=== PATIENT | female | born 1955 | race Caucasian/White ===

== ENCOUNTER 2016-12-17 13:14 | Emergency (ER) | payer OTHER ==
[~2016-12-17] VITALS: Ht 149.9 cm; Wt 80.7 kg
--- NOTE | ~2016-12-17 | EKG ---
[address] [place] [address] ELECTROCARDIOGRAM REPORT Name: LEANDER SOLARES [facility] [id number] Admission: 12/17/16 Attend Phys: Discharge: 12/17/16 Date of : 51 Report #: [id number] THIS REPORT FOR: //name// [facility] ED Test Date: 2016-12-17 Test Time: 14:36:39 Pat Name: LEANDER SOLARES Department: Room: Gender: F Cryogenics Repairer: MZOOK : 1955 Requested By: Amarjit Minor Order Number: [id number] MD: Usama Townsend Measurements Intervals [place] Rate: 69 P: 58 [place]: 161 QRS: 17 QRSD: 80 T: 59 QT: 384 QTc: 412 Interpretive Statements Sinus rhythm Borderline T abnormalities, anterior leads Compared to ECG 05/04/2016 13:34:51 No significant changes Electronically Signed On 12-18-2016 7:38:41 CDT by Usama Townsend [email or web address] <ELECTRONICALLY SIGNED> By: Usama Townsend MD, [facility] 12/18/16 0738 1436 35 Usama Townsend MD, FACC /EPI
[~2016-12-17 13:14] MED LIST: ACETAMINOPHEN325 M1 PO; ACETAMINOPHEN650 M5 PO; ADULT LOW DOSE81 MG PO; ADVAIR 100-501 EACH INH; ADVAIR 250-501 EACH IH; ADVAIR HFA 1112 UNIT INH; ADVAIRDISKUS IH; ALLERGY10 MG PO; AMARYL4 MG PO; AMBEREN; AMLODIPINE BESYL5 MG PO; ANTIVERT25 MG PO; ARTHRI-FLEX TA1 EACH; ASPIRIN325 PO; ATIVAN1 MG PO; ATORVASTATIN CA20 MG PO; BAYER CHEWABLE81 MG PO; BIOTIN PLUS KE1 EACH PO; BUTALB-APAP-CA1 EACH PO; BUTALBITAL COM1 EAC1 PO; BUTALBITAL-APA1 EAC1 OR; CARVEDILOL12.5 MG PO; CARVEDILOL25 MG PO; CLARITIN10 MG PO; COLACE100 MG PO; COREG CR20 MG PO; COREG PO; COREG25 MG PO; COZAAR 25 MG TA25 M1 PO; COZAAR 25 MG TA25 M2 PO; COZAAR 50 MG TA50 M1 PO; COZAAR 50 MG TA50 MG PO; CRANBERRY 4001 EACH PO; CRESTOR5 MG PO; CYCLOBENZAPRINE PO; DEEP SEA NASAL44 ML; DEPAKOTE ER500 MG PO; DITROPAN XL5 M1 PO; DOXYCYCLINE 10100 M1 PO; DOXYCYCLINE 10100 M2 PO; EFFEXOR XR150 MG PO; EFFEXOR XR75 MG PO; FIBER CHOICE1 EACH PO; FIBER TABS625 MG PO; FIBER0.52 G1 PO; FUROSEMIDE 20 M20 MG PO; GABAPENTIN100 MG PO; GLUCOPHAGE1000 MG PO; GLUCOPHAGE500 MG PO; GLUCOSAMINE &1 EACH PO; GLUMETZA1000; HIBICLENS120 ML; HYDROCODON-ACE1 EAC7 PO; HYDROCODONE-AP1 EAC6 PO; IBUPROFEN 200200 M1 PO; IMITREX 50 MG T50 MG PO; JANUMET 50-1,01 EACH; JANUMET 50-1,01 EACH PO; KLOR-CON M2020 MEQ PO; LASIX 20 MG TAB20 MG PO; LEXAPRO 10 MG T10 M1 PO; LIDODERM 5%1 PATC1 TRANSDERM; LIDODERM 5%1 PATCH; LIDODERM 5%1 PATCH TRANSDERM; LISINOPRIL10 MG PO; LISINOPRIL20 MG PO; LOVASTATIN 20 M20 MG PO; MACROBID 100 M100 M1 PO; MEDROL4 MG; MEDROLDOSEPACK PO; METFORMIN HCL500 MG PO; MICONAZOLE NITR45 G1; MINOCIN100 MG PO; MIRALAX17 GM PO; MIRALAX255 GM PO; MUCINEX D TABL1 EACH PO; MULTIVITAMINS PO; MULTIVITAMINS1 EAC7 PO; NAPROSYN500 MG PO; NEURONTIN 300300 M1 PO; NITROGLYCERIN0.4 MG SUBLING; NITROQUICK0.4 MG SUBLING; NORCO 5-325 TA1 EACH PO; NORFLEX100 MG PO; NORVASC 2.5 MG2.5 M1 PO; NOVOLOG100 UNIT/1 SUBQ; OXYBUTYNIN 5 MG5 M2 PO; PANTOPRAZOLE SO40 M1 PO; PERCOCET 5-3251 EACH PO; PHENERGAN 25 MG25 M1 PO; PHENERGAN50 MG RC; PLAVIX 75 MG TA75 MG PO; PRAVACHOL 20 MG20 M1 PO; PRAVASTATIN SOD20 MG PO; PROAIR HFA8.5 GM INH; PROCARDIA10 MG PO; PROMETHAZINE HC25 M2 PO; PROTONIX40 M1 PO; RANEXA 500 MG500 M1 PO; RANEXA1000 MG PO; RANITIDINE 150150 M1 PO; REQUIP 1 MG TABL1 M1 PO; RESTORIL15 MG PO; RESTORIL30 MG PO; SANCTURA XR60 M1 PO; SINGULAIR 10 MG10 M1 PO; SORE THROAT SP177 M1; SYMBICORT160 MCG/4. INH; TEMAZEPAM15 MG PO; TIZANIDINE HCL2 M1 PO; TOPAMAX 25 MG T25 M1 PO; TOPAMAX50 MG PO; TRAMADOL 50 MG50 MG PO; TRANSDERM-SCO1 PATC1 TD; TYLENOL325 MG PO; ULTRAM 50MG TAB50 MG PO; VENLAFAXIN75 MG/1 T2 PO; VENLAFAXINE HC100 MG PO; VENLAFAXINE HCL PO; XANAX 0.25 MG0.25 MG PO; ZANAFLEX2 M2 PO; ZANAFLEX4 MG PO; ZANTAC 150MG T150 MG PO; ZEGERID 20 MG1 EACH PO; ZEGERID 40 MG1 EACH PO; [UNRECOGNIZED DRUG - OTHER]
[2016-12-17 14:46] LABS: URINE BILIRUBIN NEGATIVE (Negative); URINE BLOOD NEGATIVE (Negative); URINE COLOR YELLOW; URINE GLUCOSE-RANDOM* NEGATIVE (Negative); URINE KETONES NEGATIVE (Negative); URINE LEUKOCYTES-REFLEX TRACE (Negative); URINE PROTEIN (DIPSTICK) NEGATIVE (Negative); URINE UROBILINOGEN 0.2 E.U./dl (0.2-1.0)
[2016-12-17 17:22] LABS: ABSOLUTE NEUTROPHILS 5.1 thou/uL (1.4-8.2); BASOPHILS 0.3 % (0.0-2.0); EOSINOPHILS 0.9 % (0.0-3.0); HEMOGLOBIN 11.5 gm/dL (12.0-15.0); LYMPHOCYTES 22.8 % (24.0-44.0); MANUAL DIFF NO; MCH 28.1 pg (26.0-34.0); MCV 85.1 fL (80.0-100.0); MONOCYTES 10.1 % (1.0-8.0); PLATELET COUNT 297 thou/uL (150-400); POLYS 65.9 % (36.0-66.0); RBC 4.11 mil/uL (4.20-5.00); RDW 15.9 % (10.5-14.5); WBC 7.7 thou/uL (4.0-11.0)
[2016-12-17 17:34] LABS: CALCIUM 8.5 mg/dL (8.5-10.1); CREATININE 0.9 mg/dL (0.6-1.0); POTASSIUM 4.3 mmol/L (3.5-5.1)
[2016-12-17 17:36] LABS: ALBUMIN 3.4 g/dL (3.4-5.0); TOTAL BILIRUBIN 0.3 mg/dL (<0.1-1.0); TOTAL PROTEIN 6.4 g/dL (6.4-8.2)
[2016-12-17] MEDS ORDERED: SENOKOT-S1 TA1 PO (19:54)
== END 2016-12-17 20:17 | disposition home or self-care (01) ==
LOC: ER 13:14
PROVIDERS: Emergency Medicine
DX: M54.6 Pain in thoracic spine (principal); I10 Essential (primary) hypertension; E11.9 Type 2 diabetes mellitus without complications; E78.00 Pure hypercholesterolemia, unspecified; Z90.710 Acquired absence of both cervix and uterus; Z88.1 Allergy status to other antibiotic agents; Z88.0 Allergy status to penicillin; Z88.6 Allergy status to analgesic agent; Z88.8 Allergy status to other drugs, medicaments and biological substances; Z87.891 Personal history of nicotine dependence

== ENCOUNTER 2016-12-30 11:16 | Inpatient (IN) | payer OTHER ==
[2016-12-30] VITALS (30 sets, daily range): BP systolic 86–140; BP diastolic 45–86
[~2016-12-30] VITALS: Ht 149.9 cm; Wt 97.4 kg
--- NOTE | ~2016-12-30 | HC ---
[facility] [place] [address] CONSULTATION Name: LEANDER SOLARES Room #: 454-P [facility] IN M.R.#: [id number] Admission: 12/30/16 Attend Phys: Jenny Briseno MD Discharge: 01/04/17 Date of : 51 Report #: [id number] THIS REPORT FOR: //name// CC: Osiris Briseno HISTORY OF PRESENT ILLNESS: The patient is a 61-year-old white female who was admitted with headache and right leg weakness. She was diagnosed with an acute ischemic stroke with right-sided weakness. She underwent TPA. Neurology has been involved. She was cared for in the intensive care unit. CT of the head was negative. An MRI of the brain did not show any ischemic changes per se. Carotid showed mild plaquing. She has undergone echocardiogram as well. She notes the right-sided weakness is present, improved somewhat. She was able to do some limited therapy yesterday with sitting on the edge of the bed. We are seeing her in rehabilitation medicine consultation. PAST MEDICAL HISTORY: Includes hypertension, diabetes mellitus, elevated cholesterol, she has had 4 cardiac stents, she has a history of vertigo issues and utilized a walker for this to help with this premorbidly. History of left knee degenerative arthritis. She follows with Dr. Greer in Orthopedics. She just saw him in the office recently and the plan is to undergo three injections to see if that will help prior to considering a total knee replacement. MEDICATIONS: Please see the full medication listing. ALLERGIES: She has multiple allergies as I listed. SOCIAL HISTORY: She lives in an apartment alone. No steps. Premorbid walker ambulator. She does have children that live out of town and notes that she has a jainism family that is closely involved as well as involved neighbors. REVIEW OF SYSTEMS: Did not offer any current complaints of chest pain, shortness of breath or abdominal discomfort. Her main complaint is some right shoulder pain that she noted that started approximately a day ago. It hurts with certain positions. She also has the left knee pain, which is chronic. No complaints involving her left shoulder or the right lower extremity other than the weakness with which she presented. Denied any focal numbness or tingling at the current time. She notes that the vertigo has been an issue with decreased balance. Did not offer any current complaints of headache. PHYSICAL EXAMINATION: GENERAL: A 61-year-old overweight white female in no obvious distress. VITAL SIGNS: Last recorded temperature 97.7, pulse 62, respirations 18, blood pressure 106/80. NEUROLOGIC: The patient is alert. She is oriented. HEENT: Appeared to be benign. Facies are symmetric. EXTREMITIES: She has functional range of motion of the left upper extremity [address] [address] CONSULTATION Name: LEANDER SOLARES Room #: 454-P [facility] IN M.R.#: [id number] Admission: 12/30/16 Attend Phys: Jenny Briseno MD Discharge: 01/04/17 Date of : 51 Report #: [id number] without focal weakness. Right shoulder, she has the ice pack in place. She does have some discomfort to palpation over the subdeltoid bursa and anteriorly over the biceps tendon. She has reasonable range of motion of that right shoulder with gentle passive and active assisted testing, although she does have a mildly positive impingement sign. Functional range of motion and good strength of the left upper extremity. Right lower extremity strength is probably a grade 4-/5. Left lower extremity strength is probably a 4/5. She has an ice pack of that left knee. Sensation appeared to be reasonably intact to simultaneous stimulation and proprioception of the large toe on the right, negative clonus. Functionally, she was min assist with sit to supine. She does have a fear falling. ASSESSMENT: A 61-year-old white female with the following problem list: 1. Acute ischemic stroke with right-sided weakness status post TPA. 2. Significant functional mobility and ADL deficits. 3. Premorbid history of vertigo/walker ambulation. 4. Right shoulder pain. Likely impingement syndrome with symptoms only in the last 24 hours. We will check her shoulder x-ray as discussed with the patient. 5. History of chronic left knee degenerative arthritis. 6. Diabetes mellitus. 7. Hypertension. 8. Exogenous obesity. 9. Elevated cholesterol. 10. History of prior cardiac stents. PLAN: Therapy evaluations are continuing. She is motivated to improve her overall functional independence to get back to her home setting when she further improves. She certainly may be a candidate for a short acute in-hospital inpatient rehabilitation stay to improve her functional independence, so she can return back to the home setting. We will be glad to follow along with you. <ELECTRONICALLY SIGNED> By: Tristian Blue MD 01/08/17 1523 0836 0154 Tristian Blue MD /nt
--- NOTE | ~2016-12-30 | HC ---
[facility] [address] [address] CONSULTATION Name: LEANDER SOLARES Room #: 454-P [facility] IN M.R.#: [id number] Admission: 12/30/16 Attend Phys: Jenny Briseno MD Discharge: Date of : 53 Report #: [id number] THIS REPORT FOR: //name// CC: Osiris Briseno REASON FOR CONSULTATION: Chest pain. HISTORY OF PRESENT ILLNESS: The patient is a 61-year-old woman with a history of diffuse vascular disease with prior coronary stenting. She has a chronic left upper chest pain syndrome related to musculoskeletal discomfort. Yesterday morning, she awakened about 9:30 and got up to use the bathroom. She developed the sudden onset of a headache followed by right arm and leg weakness. She also had a "funny looking smile when she looked in the mirror." She presented to the emergency department and was diagnosed with stroke and received thrombolytic therapy. Her neurologic symptoms have resolved. She has had no change in her left upper chest pain, which continues to be positional and exacerbated by palpation of the chest wall. She denies chest heaviness, pressure or ischemic type symptoms. No history of palpitations, near syncope, or syncope. MEDICATIONS: Include metformin 1000 mg twice daily, albuterol, carvedilol 12.5 mg twice daily, Protonix 40 mg daily, Ranexa 1000 mg twice daily, Topamax 100 mg twice daily, MiraLax, and torsemide 40 mg daily. ALLERGIES: To SULFA, ADHESIVE TAPE, DOXYCYCLINE, ERYTHROMYCIN, PENICILLINS, and LEVAQUIN. PAST MEDICAL HISTORY: Medical records have been reviewed and include a history of small-bowel intussusception with repair, hypertension, diabetes, coronary artery disease, inner thigh abscess with I and D, hysterectomy, and vein surgery. 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 FAMILY HISTORY: Notable for coronary artery disease. REVIEW OF SYSTEMS: All systems negative except as that noted above. PHYSICAL EXAMINATION: GENERAL: A pleasant woman who is alert and in no distress. VITAL SIGNS: Blood pressure is 105/54, heart rate is 69 and regular, she is afebrile, 4 feet 11 inches tall, 214 pounds. HEENT: There are neither xanthelasma, subcutaneous xanthomata, oral mucosal or digital cyanosis or kyphoscoliosis present. CHEST: Clear to auscultation and percussion. CARDIAC: Regular rate and rhythm with normal S1, S2. No murmurs or rubs. [address] [address] CONSULTATION Name: LEANDER SOLARES Room #: [address] [place] [address] IN M.R.#: [id number] Admission: 12/30/16 Attend Phys: Jenny Briseno MD Discharge: Date of : 53 Report #: [id number] ABDOMEN: Soft and nontender. EXTREMITIES: Without cyanosis, clubbing, or edema. Radial pulses are 2+. NEUROLOGIC: She is alert with a nonfocal exam. LABORATORY DATA: Sodium is 140, potassium 3.6, creatinine 1.1, troponin of 0, LDL of 109. White count 4.7, hemoglobin 9.6, platelet count 246. Head CT is normal. Carotid duplex demonstrates mild plaquing. Chest x-ray demonstrates mild basilar atelectasis. EKG, sinus rhythm. IMPRESSION: 1. Acute ischemic stroke with resolution of neurologic deficits following TPA. 2. Diabetes. 3. Chronic chest wall pain. 4. Coronary artery disease, clinically stable. 5. Hypertension. 6. Diastolic heart failure. RECOMMENDATIONS: 1. Resume carvedilol, usual cardiovascular medicines. 2. Echocardiogram with Doppler. 3. Neurologic evaluation. 4. Continued efforts towards aggressive risk factor modification. Thank you for asking me to participate in the patient's care. <ELECTRONICALLY SIGNED> By: Usama Townsend MD, [facility] 01/01/17 1450 0718 1053 Usama Townsend MD, FACC /nt
--- NOTE | ~2016-12-30 | EKG ---
[address] [place] [address] ELECTROCARDIOGRAM REPORT Name: LEANDER SOLARES Room #: 236-P ADM IN M.R.#: [id number] Admission: 12/30/16 Attend Phys: Jenny Briseno MD Discharge: Date of : 51 Report #: [id number] THIS REPORT FOR: //name// [facility] ED Test Date: 2016-12-30 Test Time: 11:25:04 Pat Name: LEANDER SOLARES Department: Room: 236 Gender: F Radio Communications Mechanician: YOLIE : 1955 Requested By: Gerber Garcia Order Number: [id number] MD: Usama Townsend Measurements Intervals [place] Rate: 68 P: 64 [place]: 188 QRS: 9 QRSD: 97 T: 41 QT: 426 QTc: 454 Interpretive Statements Sinus rhythm Poor R-wave progression Compared to ECG 12/17/2016 14:36:39 No significant change Electronically Signed On 12-31-2016 9:20:24 CDT by Usama Townsend [email or web address] <ELECTRONICALLY SIGNED> By: Usama Townsend MD, [facility] 12/31/16 0920 1125 112 Usama Townsend MD, FAC /EPI
--- NOTE | ~2016-12-30 | 2DMMODE ---
[facility] [email or web address] [address] 2 D/M-MODE ECHOCARDIOGRAM Name: LEANDER SOLARES Room #: 454-P [facility] IN .R.#: [id number] Admission: 12/30/16 Attend Phys: Jenny Briseno MD Discharge: Date of : 51 Date of Service: 12/31/16 1307 Report #: [id number] THIS REPORT FOR: //name// APPROVED REPORT Study performed: 12/31/2016 08:40:47 EXAM: Comprehensive 2D, Doppler, and color-flow Echocardiogram Patient Location: Bedside Room #: 236 Blood Pressure: 115/62 mmHg HR: 63 bpm Other Information Study Quality: Adequate Indications CVA/TIA Diabetes CAD Chest Pain Hypertension/HDD Echo Enhancing Agent Indication: Rule out Shunt Agent/Amount Used: Agitated Saline cc 2D Dimensions LVEF(%): 45.86 (>50%) IVSd: 11.75 (7-11mm) LVOT Diam: 18.00 (18-24mm) LVDd: 43.40 mm PWd: 11.18 (7-11mm) Ascending Ao: 30.39 (22-36mm) LVDs: 33.56 (25-40mm) Aortic Root: 27.95 mm Locke's LVEF: 45.86 % Volumes Left Atrial Volume (Systole) Single Plane 4CH: 49.04 mL Single Plane 2CH: 37.39 mL LA ESV Index: 23.00 mL/m2 Aortic Valve [facility] [email or web address] [address] 2 D/M-MODE ECHOCARDIOGRAM Name: LEANDER SOLARES Room #: 454-P [facility] IN ..#: [id number] Admission: 12/30/16 Attend Phys: Jenny Briseno MD Discharge: Date of : 51 Date of Service: 12/31/16 1307 Report #: [id number] AoV Peak Carlos.: 1.72 m/s AO Peak Gr.: 12.29 mmHg LVOT Max P.66 mmHg LVOT Max V: 0.96 m/s Mitral Valve E/A Ratio: 0.8 MV Decel. Time: 237.34 ms MV E Max Carlos.: 0.83 m/s MV A Carlos.: 1.05 m/s MV PHT: 68.83 ms Pulmonary Valve PV Peak Carlos.: 1.21 m/s PV Peak Gr.: 5.86 mmHg Pulmonary Vein P Vein S: 48.9 m/s P Vein D: 46.9 m/s P Vein A Dur.: 26.7 m/s Tricuspid Valve TR Peak Carlos.: 2.34 m/s RAP Estimate: 5.00 mmHg TR Peak Gr.: 21.93 mmHg PA Pressure: 27.00 mmHg Left Ventricle The left ventricle is normal size. There is normal LV segmental wall motion. Borderline concentric left ventricular hypertrophy. Left ventricular systolic function is normal. The left ventricular ejection fraction is within the normal range. LVEF is 60-65%. Grade I - abnormal relaxation pattern. Right Ventricle The right ventricle is normal size. The right ventricular systolic function is normal. Atria The left atrium size is normal. The right atrium size is normal. Aortic Valve The aortic valve is normal in structure. No aortic regurgitation is present. There is no aortic valvular stenosis. Mitral Valve The mitral valve is normal in structure. There is no mitral valve regurgitation noted. No evidence of mitral valve stenosis. [facility] [address] [place] [address] 2 D/M-MODE ECHOCARDIOGRAM Name: LEANDER SOLARES Room #: 454-P ADM IN M.R.#: [id number] Admission: 12/30/16 Attend Phys: Jenny Briseno MD Discharge: Date of : 51 Date of Service: 12/31/16 1307 Report #: [id number] Tricuspid Valve The tricuspid valve is normal in structure. Trace tricuspid regurgitation. Pulmonic Valve The pulmonary valve is normal in structure. Trace pulmonic regurgitation. Great Vessels The aortic root is normal in size. IVC is normal in size and collapses with >50% inspiration Pericardium There is no pericardial effusion. <Conclusion> Left ventricular systolic function is normal. There is normal LV segmental wall motion. LVEF 60-65%. Grade I - abnormal relaxation pattern. No shunting by contrast bubble injection The aortic valve is normal in structure. No aortic regurgitation or stenosis. The mitral valve is normal in structure. There is no mitral valve regurgitation. Pulmonary artery pressure of 30mmHg. There is no pericardial effusion. <ELECTRONICALLY SIGNED> By: Usama Townsend MD, [facility] 12/31/16 1307 1307 1307 Usama Townsend MD, FACC /INF
[~2016-12-30 11:16] MED LIST changes: +SENOKOT-S1 TA1 PO
[2016-12-30 11:41] LABS: POC CA IONIZED 4.6 mg/dL (4.5-5.3); POC CREATININE 1.1 mg/dL (0.6-1.3); POC HEMOGLOBIN 11.2 g/dL (12.0-15.0)
[2016-12-30 11:43] LABS: ABSOLUTE NEUTROPHILS 3.7 thou/uL (1.4-8.2); BASOPHILS 0.4 % (0.0-2.0); EOSINOPHILS 2.1 % (0.0-3.0); HEMATOCRIT 31.8 % (37.0-47.0); HEMOGLOBIN 10.6 gm/dL (12.0-15.0); LYMPHOCYTES 22.2 % (24.0-44.0); MCH 28.3 pg (26.0-34.0); MCHC 33.3 g/dL (28.0-37.0); MCV 85.1 fL (80.0-100.0); MONOCYTES 10.5 % (1.0-8.0); PLATELET COUNT 268 thou/uL (150-400); POLYS 64.8 % (36.0-66.0); RBC 3.74 mil/uL (4.20-5.00); RDW 15.9 % (10.5-14.5); WBC 5.7 thou/uL (4.0-11.0)
[2016-12-30 11:44] LABS: MANUAL DIFF NO
[2016-12-30 11:51] LABS: ANION GAP 7 mmol/L (7-16); BUN 25 mg/dL (7-18); CALCIUM 8.6 mg/dL (8.5-10.1); CHLORIDE 100 mmol/L (98-107); CO2 28 mmol/L (21-32); CREATININE 1.2 mg/dL (0.6-1.0); GLUCOSE 157 mg/dL (74-106); POTASSIUM 4.1 mmol/L (3.5-5.1); SODIUM 135 mmol/L (136-145)
[2016-12-30 12:00] LABS: NT-PRO BRAIN NAT PEPTIDE 284 pg/mL (<300); TROPONIN-I < 0.04 ng/mL (<0.04-0.07)
[2016-12-30] MEDS ORDERED: DEMADEX20 MG PO (12:38)
[2016-12-31] VITALS (15 sets, daily range): BP systolic 86–117; BP diastolic 45–92
[2016-12-31 04:18] LABS: HEMATOCRIT 28.3 % (37.0-47.0); HEMOGLOBIN 9.6 gm/dL (12.0-15.0); MCH 28.6 pg (26.0-34.0); MCHC 33.7 g/dL (28.0-37.0); MCV 84.7 fL (80.0-100.0); PLATELET COUNT 246 thou/uL (150-400); RBC 3.34 mil/uL (4.20-5.00); RDW 15.9 % (10.5-14.5); WBC 4.7 thou/uL (4.0-11.0)
[2016-12-31 04:19] LABS: MANUAL DIFF YES
[2016-12-31 04:43] LABS: ALBUMIN 3.1 g/dL (3.4-5.0); ALKALINE PHOSPHATASE 67 U/L (46-116); ANION GAP 9 mmol/L (7-16); BUN 17 mg/dL (7-18); CALCIUM 8.6 mg/dL (8.5-10.1); CHLORIDE 107 mmol/L (98-107); CHOLESTEROL 200 mg/dL (<200); CO2 24 mmol/L (21-32); CREATININE 1.1 mg/dL (0.6-1.0); GLUCOSE 128 mg/dL (74-106); HDL CHOLESTEROL 50 mg/dL (>40); LDL CHOLESTEROL 109 mg/dL (<100); NT-PRO BRAIN NAT PEPTIDE 442 pg/mL (<300); POTASSIUM 3.6 mmol/L (3.5-5.1); SGOT 19 U/L (15-37); SGPT 23 U/L (30-65); SODIUM 140 mmol/L (136-145); TOTAL BILIRUBIN 0.2 mg/dL (<0.1-1.0); TOTAL PROTEIN 5.7 g/dL (6.4-8.2); TRIGLYCERIDE 209 mg/dL (<150); TROPONIN-I < 0.04 ng/mL (<0.04-0.07); VLDL 42 mg/dL (<40)
[2016-12-31 08:49] LABS: ABSOLUTE NEUTROPHILS 2.2 thou/uL (1.4-8.2); ATYPICAL LYMPHS 1 %; TOTAL CELL COUNT 100
[2016-12-31 08:50] LABS: ANISOCYTOSIS 1+
[2016-12-31 17:08] LABS: CREATININE (ALB/CR) 33.2 mg/dL (Not Estab.); MICROALB:CREAT < 36.1 (0.0-30.0); MICROALBUMIN-RND URINE < 12.0 ug/mL (Not Estab.)
[2016-12-31 21:12] LABS: GLYCOHEMOGLOBIN (HGB A1C) 6.6 % (4.8-5.6)
[2017-01-01 03:28] VITALS: BP 92/45
[2017-01-01 07:54] VITALS: BP 106/80
[2017-01-01] MEDS ORDERED: TEMAZEPAM15 MG PO (11:15)
[2017-01-01] MEDS ORDERED: HYDROCODONE-AP1 EAC6 PO (11:15)
[2017-01-01] MEDS ORDERED: ADULT LOW DOSE81 MG PO (11:15)
[2017-01-01 12:00] VITALS: BP 142/58
[2017-01-01 15:41] VITALS: BP 129/60
[2017-01-01 19:23] VITALS: BP 114/55
[2017-01-02 02:40] VITALS: BP 103/52
[2017-01-02 07:04] VITALS: BP 103/52
[2017-01-02 07:25] VITALS: BP 113/64
[2017-01-02 11:14] VITALS: BP 121/72
[2017-01-02 15:16] VITALS: BP 137/74
[2017-01-02 19:26] VITALS: BP 133/61
[2017-01-03 03:47] VITALS: BP 121/53
[2017-01-03 07:22] VITALS: BP 109/51
[2017-01-03 11:45] VITALS: BP 121/47
[2017-01-03 16:13] VITALS: BP 136/75
[2017-01-03 19:54] VITALS: BP 129/61
[2017-01-04 04:15] VITALS: BP 115/51
[2017-01-04 07:47] VITALS: BP 116/64
== END 2017-01-04 11:59 | DRG 69 ==
LOC: ER 11:16 → 4W 13:29 → ICU 13:29 → EROBS 13:29 → ICU 14:32 → 4W 12-31 11:35
PROVIDERS: Emergency Medicine; Internal Medicine Endocrinology, Diabetes & Metabolism
DX: G45.9 Transient cerebral ischemic attack, unspecified (principal); I50.32 Chronic diastolic (congestive) heart failure; Z68.41 Body mass index [BMI] 40.0-44.9, adult; E44.1 Mild protein-calorie malnutrition; E11.9 Type 2 diabetes mellitus without complications; E78.00 Pure hypercholesterolemia, unspecified; I25.10 Atherosclerotic heart disease of native coronary artery without angina pectoris; I11.0 Hypertensive heart disease with heart failure; E66.09 Other obesity due to excess calories; G89.29 Other chronic pain; E78.5 Hyperlipidemia, unspecified; Z90.710 Acquired absence of both cervix and uterus; Z86.14 Personal history of Methicillin resistant Staphylococcus aureus infection; Z95.5 Presence of coronary angioplasty implant and graft; Z88.1 Allergy status to other antibiotic agents; Z82.49 Family history of ischemic heart disease and other diseases of the circulatory system; Z88.0 Allergy status to penicillin; Z88.8 Allergy status to other drugs, medicaments and biological substances; Z83.3 Family history of diabetes mellitus; Z87.891 Personal history of nicotine dependence; Z88.2 Allergy status to sulfonamides
CPT/HCPCS: 10045; 10078

== ENCOUNTER 2018-08-24 18:35 | Inpatient (IN) | payer OTHER ==
[~2018-08-24] VITALS: Ht 149.9 cm; Wt 92.1 kg
--- NOTE | ~2018-08-24 | EKG ---
[address] [place] [address] ELECTROCARDIOGRAM REPORT Name: LEANDER SOLARES Room #: 202-P ADM IN M.R.#: [id number] Admission: 08/24/18 Attend Phys: Jamil Samayoa MD Discharge: Date of : 51 Report #: [id number] THIS REPORT FOR: //name// 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: JOSE : 1955 Requested By: Elaine Hope Order Number: [id number] MD: Usama Townsend Measurements Intervals [place] Rate: 71 P: 71 [place]: 166 QRS: 17 QRSD: 86 T: 50 QT: 413 QTc: 449 Interpretive Statements Sinus rhythm Poor R wave progression Compared to ECG 12/30/2016 11:25:04 No significant change was found Electronically Signed On 08-25-2018 8:54:35 RISK ANALYST by Usama Townsend [email or web address] <ELECTRONICALLY SIGNED> By: Usama Townsend MD, [facility] 08/25/18 0854 1840 Usama Townsend MD, [facility] /EPI
[~2018-08-24 18:35] MED LIST changes: +DEMADEX20 MG PO
[2018-08-24 18:36] VITALS: BP 154/68
[2018-08-24] MEDS ORDERED: DEPAKOTE 250MG250 M1 PO (19:19)
[2018-08-24] MEDS ORDERED: NABUMETONE 750750 M1 PO (19:20)
[2018-08-24] MEDS ORDERED: RANEXA500 MG PO (19:20)
[2018-08-24] MEDS ORDERED: PROTONIX40 M1 PO (19:21)
[2018-08-24] MEDS ORDERED: SYNTHROID100 MC1 PO (19:21)
[2018-08-24] MEDS ORDERED: METFORMIN HCL500 MG PO (19:21)
[2018-08-24] MEDS ORDERED: PLAVIX 75 MG TA75 M1 PO (19:22)
[2018-08-24] MEDS ORDERED: AMITRIPTYLINE H10 M3 PO (19:22)
[2018-08-24] MEDS ORDERED: VITAMIN D2000 UNIT PO (19:23)
[2018-08-24] MEDS ORDERED: BIOTIN1000 MCG PO (19:23)
[2018-08-24] MEDS ORDERED: VITAMIN B-12500 MCG PO (19:24)
[2018-08-24] MEDS ORDERED: UNICOMPLEX M TA1 TA1 PO (19:24)
[2018-08-24] MEDS ORDERED: FIBER500 MG PO (19:24)
[2018-08-24 19:52] LABS: URINE BLOOD NEGATIVE (Negative); URINE CLARITY CLEAR; URINE COLOR YELLOW; URINE GLUCOSE-RANDOM* NEGATIVE (Negative); URINE KETONES 3+ (Negative); URINE LEUKOCYTES-REFLEX NEGATIVE (Negative); URINE NITRITE-REFLEX NEGATIVE (Negative); URINE PROTEIN (DIPSTICK) 1+ (Negative); URINE SPECIFIC GRAVITY >= 1.030 (1.005-1.035); URINE UROBILINOGEN 0.2 E.U./dl (0.2-1.0)
[2018-08-24 19:57] LABS: ICTOTEST (BILI CONFIRMATORY) Negative (Negative); URINE BILIRUBIN NEGATIVE (Negative)
[2018-08-24 19:59] LABS: SQUAMOUS 4-10 Moderate /LPF (0-3); URINE REDUCING SUBSTANCE NEGATIVE
[2018-08-24 20:00] LABS: BACTERIA-REFLEX 1-9 Few /HPF (None Seen); CASTS None Seen /LPF (None Seen); CRYSTALS None Seen /LPF (None Seen); URINE RBC None Seen /HPF (0-2); URINE WBC-REFLEX None Seen /HPF (0-5)
[2018-08-24 21:43] LABS: ABSOLUTE NEUTROPHILS 5.6 thou/uL (1.4-8.2); BASOPHILS 1.1 % (0.0-2.0); EOSINOPHILS 1.4 % (0.0-3.0); HEMATOCRIT 36.8 % (37.0-47.0); HEMOGLOBIN 12.5 gm/dL (12.0-15.0); LYMPHOCYTES 25.2 % (24.0-44.0); MCH 31.4 pg (26.0-34.0); MCV 92.3 fL (80.0-100.0); MONOCYTES 9.2 % (1.0-8.0); PLATELET COUNT 238 thou/uL (150-400); POLYS 63.1 % (36.0-66.0); RBC 3.99 mil/uL (4.20-5.00); WBC 8.9 thou/uL (4.0-11.0)
[2018-08-24 21:57] LABS: ANION GAP 13 mmol/L (7-16); BUN 22 mg/dL (7-18); CALCIUM 8.7 mg/dL (8.5-10.1); CHLORIDE 103 mmol/L (98-107); CO2 23 mmol/L (21-32); CREATININE 0.8 mg/dL (0.6-1.0); GLUCOSE 103 mg/dL (74-106); POTASSIUM 3.7 mmol/L (3.5-5.1); SODIUM 139 mmol/L (136-145)
[2018-08-24 22:05] LABS: ALBUMIN 3.3 g/dL (3.4-5.0); DIRECT BILIRUBIN 0.1 mg/dL (<0.1-0.3); LIPASE 93 U/L (73-393); SGOT 21 U/L (15-37); SGPT 23 U/L (30-65); TOTAL BILIRUBIN 0.5 mg/dL (<0.1-1.0); TOTAL PROTEIN 6.5 g/dL (6.4-8.2); TROPONIN-I <0.06 ng/mL (<0.06)
[2018-08-24 23:27] VITALS: BP 186/74
[2018-08-24 23:42] VITALS: BP 173/64
[2018-08-25] VITALS: BP 156/55
[2018-08-25 03:58] LABS: CHOLESTEROL 268 mg/dL (<200); HDL CHOLESTEROL 40 mg/dL (>40); LDL CHOLESTEROL 195 mg/dL (<100); TC:HDL 6.7 Ratio (Not establshd); TRIGLYCERIDE 168 mg/dL (<150); VLDL 34 mg/dL (<40)
[2018-08-25 04:00] LABS: SERUM ASSESSMENT Clear
[2018-08-25 04:45] VITALS: BP 145/54
[2018-08-25 10:25] LABS: HEMATOCRIT 39.2 % (37.0-47.0); HEMOGLOBIN 13.1 gm/dL (12.0-15.0); MCH 31.4 pg (26.0-34.0); MCHC 33.4 g/dL (28.0-37.0); RBC 4.17 mil/uL (4.20-5.00); RDW 13.8 % (10.5-14.5); WBC 8.3 thou/uL (4.0-11.0)
[2018-08-25 10:29] LABS: CALCIUM 9.1 mg/dL (8.5-10.1); CREATININE 0.9 mg/dL (0.6-1.0); MAGNESIUM 1.9 mg/dL (1.8-2.4); POTASSIUM 3.5 mmol/L (3.5-5.1)
[2018-08-25 12:40] VITALS: BP 137/61
[2018-08-25 16:02] VITALS: BP 118/46
[2018-08-25 19:42] VITALS: BP 100/39; BP 98/35
[2018-08-26 03:02] VITALS: BP 102/49
[2018-08-26 04:42] LABS: HEMATOCRIT 34.3 % (37.0-47.0); HEMOGLOBIN 11.5 gm/dL (12.0-15.0); MCHC 33.6 g/dL (28.0-37.0); MCV 92.4 fL (80.0-100.0); RBC 3.71 mil/uL (4.20-5.00); RDW 13.6 % (10.5-14.5); WBC 5.7 thou/uL (4.0-11.0)
[2018-08-26 04:47] LABS: CALCIUM 8.6 mg/dL (8.5-10.1); CREATININE 0.9 mg/dL (0.6-1.0); MAGNESIUM 1.8 mg/dL (1.8-2.4); POTASSIUM 3.5 mmol/L (3.5-5.1)
[2018-08-26 08:08] VITALS: BP 123/70
[2018-08-26 12:39] VITALS: BP 129/62
[2018-08-26 16:03] VITALS: BP 107/47
[2018-08-26 19:15] VITALS: BP 123/50
[2018-08-27 04:30] VITALS: BP 99/50
[2018-08-27 04:42] LABS: CALCIUM 8.4 mg/dL (8.5-10.1); MAGNESIUM 1.7 mg/dL (1.8-2.4); POTASSIUM 3.3 mmol/L (3.5-5.1)
[2018-08-27 05:00] LABS: HEMATOCRIT 34.3 % (37.0-47.0); HEMOGLOBIN 11.5 gm/dL (12.0-15.0); MCH 31.1 pg (26.0-34.0); MCHC 33.4 g/dL (28.0-37.0); MCV 93.1 fL (80.0-100.0); RBC 3.69 mil/uL (4.20-5.00); RDW 13.5 % (10.5-14.5); WBC 5.1 thou/uL (4.0-11.0)
[2018-08-27 07:50] VITALS: BP 96/40
[2018-08-27 16:35] VITALS: BP 109/51
[2018-08-27 19:01] VITALS: BP 113/41
[2018-08-28 04:21] VITALS: BP 106/61
[2018-08-28 04:26] LABS: CALCIUM 8.4 mg/dL (8.5-10.1); POTASSIUM 3.5 mmol/L (3.5-5.1)
[2018-08-28 05:52] LABS: HEMATOCRIT 33.9 % (37.0-47.0); HEMOGLOBIN 11.2 gm/dL (12.0-15.0); MCH 30.8 pg (26.0-34.0); MCHC 33.1 g/dL (28.0-37.0); MCV 92.8 fL (80.0-100.0); RBC 3.65 mil/uL (4.20-5.00); RDW 13.9 % (10.5-14.5); WBC 3.7 thou/uL (4.0-11.0)
[2018-08-28 07:10] VITALS: BP 93/39
[2018-08-28 07:48] VITALS: BP 110/65
[2018-08-28 12:50] VITALS: BP 125/52
[2018-08-28 15:15] VITALS: BP 131/52
[2018-08-28 19:23] VITALS: BP 109/34
[2018-08-29 00:49] VITALS: BP 138/61
[2018-08-29 04:42] VITALS: BP 91/37
[2018-08-29 06:21] LABS: HEMATOCRIT 32.6 % (37.0-47.0); HEMOGLOBIN 11.1 gm/dL (12.0-15.0); MCH 31.4 pg (26.0-34.0); MCV 92.4 fL (80.0-100.0); RBC 3.53 mil/uL (4.20-5.00); WBC 3.8 thou/uL (4.0-11.0)
[2018-08-29 06:30] LABS: CALCIUM 8.3 mg/dL (8.5-10.1); CREATININE 0.9 mg/dL (0.6-1.0); MAGNESIUM 1.8 mg/dL (1.8-2.4); POTASSIUM 3.3 mmol/L (3.5-5.1)
[2018-08-29 07:25] VITALS: BP 101/50
[2018-08-29 11:10] VITALS: BP 134/61
[2018-08-29] MEDS ORDERED: PHENERGAN 25 MG25 M1 PO (13:04)
[2018-08-29] MEDS ORDERED: PROTONIX40 M1 PO (13:07)
[2018-08-29] MEDS ORDERED: ZOFRAN ODT4 MG PO (13:13)
[2018-08-29] MEDS ORDERED: CARAFATE 11 GM/10 M1 PO (13:13)
[2018-08-29 13:29] VITALS: BP 134/61
== END 2018-08-29 14:33 | disposition home or self-care (01) | DRG 392 ==
LOC: ER 18:35 → EROBS 23:05 → 2N 23:05
PROVIDERS: Emergency Medicine; Internal Medicine; Nurse Practitioner Acute Care
PROC: 0DJ08ZZ Inspection of Upper Intestinal Tract, Via Natural or Artificial Opening Endoscopic (ICD-10-PCS; principal; 2018-08-28)
DX: K52.9 Noninfective gastroenteritis and colitis, unspecified (principal); I50.32 Chronic diastolic (congestive) heart failure; E44.1 Mild protein-calorie malnutrition; Z68.41 Body mass index [BMI] 40.0-44.9, adult; R07.89 Other chest pain; E11.43 Type 2 diabetes mellitus with diabetic autonomic (poly)neuropathy; E03.9 Hypothyroidism, unspecified; I25.10 Atherosclerotic heart disease of native coronary artery without angina pectoris; E78.5 Hyperlipidemia, unspecified; Z60.2 Problems related to living alone; K21.9 Gastro-esophageal reflux disease without esophagitis; R31.9 Hematuria, unspecified; L53.8 Other specified erythematous conditions; I11.0 Hypertensive heart disease with heart failure; K31.84 Gastroparesis; E78.00 Pure hypercholesterolemia, unspecified; Z90.710 Acquired absence of both cervix and uterus; Z88.1 Allergy status to other antibiotic agents; Z88.2 Allergy status to sulfonamides; Z88.8 Allergy status to other drugs, medicaments and biological substances; Z87.891 Personal history of nicotine dependence; Z82.49 Family history of ischemic heart disease and other diseases of the circulatory system; Z83.3 Family history of diabetes mellitus; Z95.5 Presence of coronary angioplasty implant and graft; Z79.899 Other long term (current) drug therapy; Z86.73 Personal history of transient ischemic attack (TIA), and cerebral infarction without residual deficits; Z90.49 Acquired absence of other specified parts of digestive tract
CPT/HCPCS: 10081

== ENCOUNTER 2018-09-01 11:24 | Inpatient (IN) | payer OTHER ==
[~2018-09-01] VITALS: Ht 149.9 cm; Wt 95.3 kg
[2018-09-01] VITALS (23 sets, daily range): BP systolic 88–156; BP diastolic 39–128
[~2018-09-01 11:24] MED LIST changes: +AMITRIPTYLINE H10 M3 PO; +BIOTIN1000 MCG PO; +CARAFATE 11 GM/10 M1 PO; +DEPAKOTE 250MG250 M1 PO; +FIBER500 MG PO; +NABUMETONE 750750 M1 PO; +PLAVIX 75 MG TA75 M1 PO; +RANEXA500 MG PO; +SYNTHROID100 MC1 PO; +UNICOMPLEX M TA1 TA1 PO; +VITAMIN B-12500 MCG PO; +VITAMIN D2000 UNIT PO; +ZOFRAN ODT4 MG PO
[2018-09-01 11:56] LABS: ABSOLUTE NEUTROPHILS 2.4 thou/uL (1.4-8.2); BASOPHILS 0.3 % (0.0-2.0); EOSINOPHILS 3.9 % (0.0-3.0); HEMATOCRIT 31.9 % (37.0-47.0); HEMOGLOBIN 10.9 gm/dL (12.0-15.0); LYMPHOCYTES 30.8 % (24.0-44.0); MCH 31.8 pg (26.0-34.0); MCHC 34.2 g/dL (28.0-37.0); MCV 92.9 fL (80.0-100.0); PLATELET COUNT 179 thou/uL (150-400); RBC 3.44 mil/uL (4.20-5.00); RDW 13.9 % (10.5-14.5); WBC 4.6 thou/uL (4.0-11.0)
[2018-09-01 12:03] LABS: ANION GAP 12 mmol/L (7-16); BUN 10 mg/dL (7-18); CHLORIDE 105 mmol/L (98-107); CO2 22 mmol/L (21-32); CREATININE 1.3 mg/dL (0.6-1.0); GLUCOSE 129 mg/dL (74-106); POTASSIUM 3.4 mmol/L (3.5-5.1); SODIUM 139 mmol/L (136-145)
[2018-09-01 12:12] LABS: ALBUMIN 3.1 g/dL (3.4-5.0); DIRECT BILIRUBIN < 0.1 mg/dL (<0.1-0.3); LIPASE 90 U/L (73-393); SGOT 15 U/L (15-37); SGPT 18 U/L (30-65); TOTAL BILIRUBIN 0.8 mg/dL (<0.1-1.0); TOTAL PROTEIN 5.8 g/dL (6.4-8.2); TROPONIN-I <0.06 ng/mL (<0.06)
[2018-09-01 12:25] LABS: URINE BILIRUBIN NEGATIVE (Negative); URINE BLOOD NEGATIVE (Negative); URINE CLARITY CLEAR; URINE COLOR YELLOW; URINE GLUCOSE-RANDOM* NEGATIVE (Negative); URINE KETONES NEGATIVE (Negative); URINE LEUKOCYTES-REFLEX NEGATIVE (Negative); URINE NITRITE-REFLEX NEGATIVE (Negative); URINE PROTEIN (DIPSTICK) NEGATIVE (Negative); URINE SPECIFIC GRAVITY 1.025 (1.005-1.035); URINE UROBILINOGEN 0.2 E.U./dl (0.2-1.0)
--- NOTE | 2018-09-01 13:07 | EKG ---
[address] [place] [address] ELECTROCARDIOGRAM REPORT Name: LEANDER SOLARES [facility] [id number] Admission: 09/01/18 Attend Phys: Discharge: Date of : 51 Report #: [id number] THIS REPORT FOR: //name// [facility] ED Test Date: 2018-09-01 Test Time: 11:29:24 Pat Name: LEANDER SOLARES Department: Room: Gender: F Construction Skills Teacher: RUSS : 1955 Requested By: Elaine Hope Order Number: [id number] MD: Mike Vogt Measurements Intervals [place] Rate: 66 P: 51 [place]: 196 QRS: 1 QRSD: 95 T: 8 QT: 466 QTc: 489 Interpretive Statements Sinus arrhythmia Low voltage, precordial leads Poor R-wave progression, Nonspecific T-wave abnormalities Compared to ECG 08/24/2018 18:40:00 No significant change Electronically Signed On 09-01-2018 13:07:16 PRESS OPERATOR by Mike Vogt [email or web address] <ELECTRONICALLY SIGNED> By: Mike Vogt MD 09/01/18 1307 1129 1129 MD ANN MARIE Capps
[2018-09-01] MEDS ORDERED: DIFLUCAN150 MG PO (14:04)
[2018-09-01] MEDS ORDERED: NOVOLIN R100 UNIT/3 SUBQ (14:06)
[2018-09-01] MEDS ORDERED: AMITIZA 24 MCG24 MC1 PO (14:08)
[2018-09-01] MEDS ORDERED: ATORVASTATIN CA40 MG PO (14:09)
[2018-09-01] MEDS ORDERED: BENTYL 20 MG TA20 M1 PO (14:09)
[2018-09-01] MEDS ORDERED: PHENERGAN 25 MG25 M1 PO (14:10)
[2018-09-01] MEDS ORDERED: RESTORIL30 MG PO (14:11)
[2018-09-01] MEDS ORDERED: ECPIRIN325 MG PO (14:11)
[2018-09-01] MEDS ORDERED: PROTONIX40 M1 PO (14:12)
[2018-09-01] MEDS ORDERED: CLARITIN10 MG PO (14:12)
[2018-09-01] MEDS ORDERED: EFFEXOR XR150 MG PO (14:15)
[2018-09-01] MEDS ORDERED: NORCO 5-325 TA1 EACH PO (14:16)
[2018-09-01] MEDS ORDERED: NITROSTAT0.4 M1 SUBLING (14:18)
[2018-09-01] MEDS ORDERED: MIRALAX17 G1 PO (14:22)
[2018-09-02] VITALS (20 sets, daily range): BP systolic 87–156; BP diastolic 26–92
[2018-09-02 06:15] LABS: HEMATOCRIT 32.4 % (37.0-47.0); MCH 31.7 pg (26.0-34.0); MCV 93.3 fL (80.0-100.0); RBC 3.47 mil/uL (4.20-5.00); WBC 4.8 thou/uL (4.0-11.0)
[2018-09-02 06:18] LABS: CALCIUM 8.2 mg/dL (8.5-10.1); CREATININE 1.1 mg/dL (0.6-1.0); POTASSIUM 3.5 mmol/L (3.5-5.1)
[2018-09-03] VITALS (7 sets, daily range): BP systolic 107–158; BP diastolic 49–84
--- NOTE | 2018-09-03 08:31 | HC ---
[facility] [place] [address] CONSULTATION Name: LEANDER SOLARES Room #: 360-P ADM IN .R.#: [id number] Admission: 09/01/18 Attend Phys: Chintan Sal MD Discharge: Date of : 51 Report #: [id number] THIS REPORT FOR: //name// CC: Chintan Augustine DATE OF SERVICE: 09/02/2018 INDICATION: Near syncope. HISTORY OF PRESENT ILLNESS: This 63-year-old female who was just discharged from the hospital with similar presentation, returns with an episode of near syncope. She had previously been hospitalized for nausea, vomiting, diarrhea. She did undergo a GI evaluation, found to have inflammation of her gastric mucosa, started on Carafate. She also had atypical chest pain, evaluated by Dr. Townsend. She was home for 2-1/2 days, but still had issues with nausea and diminished appetite. During that time, she was discharged home on carvedilol and torsemide. She was at Dr. Augustine's office when she had a near syncopal episode. She denies any fever, chest pain, vomiting or diarrhea. PAST MEDICAL HISTORY: CAD with history of stents, cardiac catheterization in 2014 revealed patent stents in the LAD and RCA. She is followed by Dr. Tylor oCrdero at [facility], undergoing a stent in March. History of hypertension, hyperlipidemia, diabetes mellitus, TIA, prior history of pancreatitis. ALLERGIES: INCLUDE BACTRIM, KEFLEX, DOXYCYCLINE, PENICILLIN, LEVOFLOXACIN. MEDICATIONS: Please see the MAR for full listing. SOCIAL HISTORY: Denies tobacco use. FAMILY HISTORY: Negative for premature CAD. REVIEW OF SYSTEMS: A full 10-point review of systems performed. Only the pertinent positives and negatives are described in the HPI. PHYSICAL EXAMINATION: VITAL SIGNS: Blood pressure is 97/47, heart rate is 60 beats per minute. GENERAL APPEARANCE: She is a mildly overweight female, in no acute distress. HEENT: Normocephalic, atraumatic. Oral mucosa moist. NECK: Supple. LUNGS: CTA. CARDIAC: Regular rate and rhythm, S1, S2 positive. ABDOMEN: Soft, nontender. EXTREMITIES: No cyanosis, trace edema. [facility] [address] [place] [address] CONSULTATION Name: LEANDER SOLARES Room #: 360-P [facility] IN [facility].#: [id number] Admission: 09/01/18 Attend Phys: Chintan Sal MD Discharge: Date of : 51 Report #: [id number] NEUROLOGIC: Alert and oriented x 3. DATABASE: ECG reveals sinus rhythm, low voltage, poor R-wave progression, nonspecific T-wave abnormality. LABORATORY VALUES: White count is 4.8 and hemoglobin is 11.0. Sodium is 144, creatinine is 1.1. Troponin is negative. ASSESSMENT AND PLAN: 1. Near syncope secondary to dehydration/low volume. She has had issues with her p.o. intake for the past few weeks. She continues to take her cardiac medications including carvedilol and torsemide. The plan is to hold all blood pressure medications. Increase hydration. 2. Nausea/abdominal pain, consider a GI evaluation. 3. Coronary artery disease, history of stents, stable at this time with no complaints of angina. Continue with Plavix therapy. 4. Hypercholesterolemia. Continue with statin therapy. <ELECTRONICALLY SIGNED> By: Mike Vogt MD 09/03/18 0831 0935 1213 Mike Vogt MD /nt
[2018-09-03 09:42] LABS: HEMATOCRIT 30.5 % (37.0-47.0); HEMOGLOBIN 10.3 gm/dL (12.0-15.0); MCH 31.7 pg (26.0-34.0); MCHC 33.9 g/dL (28.0-37.0); MCV 93.4 fL (80.0-100.0); RBC 3.27 mil/uL (4.20-5.00); RDW 14.4 % (10.5-14.5); WBC 4.3 thou/uL (4.0-11.0)
[2018-09-03 09:55] LABS: ALBUMIN 2.3 g/dL (3.4-5.0); CALCIUM 7.6 mg/dL (8.5-10.1); CREATININE 0.8 mg/dL (0.6-1.0); MAGNESIUM 1.3 mg/dL (1.8-2.4); POTASSIUM 3.1 mmol/L (3.5-5.1); TOTAL BILIRUBIN 0.3 mg/dL (<0.1-1.0); TOTAL PROTEIN 4.7 g/dL (6.4-8.2)
[2018-09-04 02:59] VITALS: BP 113/59
[2018-09-04 04:40] LABS: HEMATOCRIT 30.9 % (37.0-47.0); HEMOGLOBIN 10.5 gm/dL (12.0-15.0); MCH 31.7 pg (26.0-34.0); MCV 93.2 fL (80.0-100.0); RBC 3.32 mil/uL (4.20-5.00); RDW 14.4 % (10.5-14.5); WBC 4.4 thou/uL (4.0-11.0)
[2018-09-04 04:54] LABS: CALCIUM 8.4 mg/dL (8.5-10.1); CREATININE 0.9 mg/dL (0.6-1.0); MAGNESIUM 1.7 mg/dL (1.8-2.4)
[2018-09-04 05:14] LABS: POTASSIUM 4.1 mmol/L (3.5-5.1)
[2018-09-04 13:02] VITALS: BP 183/82
[2018-09-04 16:13] VITALS: BP 177/72
[2018-09-04 19:50] VITALS: BP 119/60
[2018-09-05 04:45] VITALS: BP 111/52
[2018-09-05 06:13] LABS: HEMATOCRIT 33.3 % (37.0-47.0); HEMOGLOBIN 10.9 gm/dL (12.0-15.0); MCH 30.7 pg (26.0-34.0); MCHC 32.6 g/dL (28.0-37.0); MCV 94.1 fL (80.0-100.0); RBC 3.54 mil/uL (4.20-5.00); WBC 4.2 thou/uL (4.0-11.0)
[2018-09-05 06:26] LABS: CREATININE 0.9 mg/dL (0.6-1.0); MAGNESIUM 1.6 mg/dL (1.8-2.4); POTASSIUM 4.2 mmol/L (3.5-5.1)
[2018-09-05 07:42] VITALS: BP 134/61
[2018-09-05 11:10] VITALS: BP 148/81
[2018-09-05 12:25] VITALS: BP 148/81
[2018-09-05 16:09] VITALS: BP 130/70
[2018-09-06 00:05] VITALS: BP 125/70
[2018-09-06 06:14] LABS: HEMATOCRIT 28.1 % (37.0-47.0); HEMOGLOBIN 9.4 gm/dL (12.0-15.0); MCH 31.5 pg (26.0-34.0); MCHC 33.4 g/dL (28.0-37.0); MCV 94.2 fL (80.0-100.0); RBC 2.99 mil/uL (4.20-5.00); RDW 14.2 % (10.5-14.5); WBC 3.4 thou/uL (4.0-11.0)
[2018-09-06 06:36] LABS: CALCIUM 7.3 mg/dL (8.5-10.1); CREATININE 0.7 mg/dL (0.6-1.0); MAGNESIUM 1.4 mg/dL (1.8-2.4)
[2018-09-06 06:37] LABS: POTASSIUM 3.2 mmol/L (3.5-5.1)
[2018-09-06 07:39] VITALS: BP 129/66
[2018-09-06 11:47] VITALS: BP 152/80
[2018-09-06 15:51] VITALS: BP 154/72
[2018-09-06 19:57] VITALS: BP 118/57
[2018-09-07 04:32] VITALS: BP 113/51
[2018-09-07 05:39] LABS: HEMATOCRIT 31.4 % (37.0-47.0); HEMOGLOBIN 10.6 gm/dL (12.0-15.0); MCH 31.8 pg (26.0-34.0); MCHC 33.9 g/dL (28.0-37.0); MCV 93.9 fL (80.0-100.0); RBC 3.35 mil/uL (4.20-5.00); RDW 14.4 % (10.5-14.5)
[2018-09-07 05:54] LABS: CALCIUM 8.6 mg/dL (8.5-10.1); CREATININE 0.8 mg/dL (0.6-1.0); MAGNESIUM 1.6 mg/dL (1.8-2.4); POTASSIUM 3.9 mmol/L (3.5-5.1)
[2018-09-07 08:01] VITALS: BP 114/59
[2018-09-07] MEDS ORDERED: REGLAN 10 MG TA10 MG PO (11:01)
[2018-09-07 11:28] VITALS: BP 129/66
[2018-09-07 12:16] VITALS: BP 148/81
== END 2018-09-07 14:42 | disposition home health service (06) | DRG 683 ==
LOC: ER 11:24 → EROBS 13:10 → 3W 13:10 → ICU 16:12 → 3W 09-02 18:48
PROVIDERS: Emergency Medicine; Internal Medicine; Nurse Practitioner Family; ADMIT Hospitalist
PROC: 02HV33Z Insertion of Infusion Device into Superior Vena Cava, Percutaneous Approach (ICD-10-PCS; principal; 2018-09-01)
DX: N17.9 Acute kidney failure, unspecified (principal); E44.0 Moderate protein-calorie malnutrition; Z68.41 Body mass index [BMI] 40.0-44.9, adult; E11.43 Type 2 diabetes mellitus with diabetic autonomic (poly)neuropathy; I44.1 Atrioventricular block, second degree; R00.1 Bradycardia, unspecified; K31.84 Gastroparesis; I95.9 Hypotension, unspecified; I10 Essential (primary) hypertension; R19.7 Diarrhea, unspecified; E87.6 Hypokalemia; R21 Rash and other nonspecific skin eruption; E86.0 Dehydration; G43.909 Migraine, unspecified, not intractable, without status migrainosus; I25.10 Atherosclerotic heart disease of native coronary artery without angina pectoris; E78.5 Hyperlipidemia, unspecified; E03.9 Hypothyroidism, unspecified; E78.00 Pure hypercholesterolemia, unspecified; Z90.710 Acquired absence of both cervix and uterus; Z90.49 Acquired absence of other specified parts of digestive tract; Z86.73 Personal history of transient ischemic attack (TIA), and cerebral infarction without residual deficits; Z86.14 Personal history of Methicillin resistant Staphylococcus aureus infection; Z79.82 Long term (current) use of aspirin; Z79.899 Other long term (current) drug therapy; Z79.84 Long term (current) use of oral hypoglycemic drugs; Z88.1 Allergy status to other antibiotic agents; Z88.8 Allergy status to other drugs, medicaments and biological substances; Z87.891 Personal history of nicotine dependence; Z88.0 Allergy status to penicillin; Z95.5 Presence of coronary angioplasty implant and graft; Z82.49 Family history of ischemic heart disease and other diseases of the circulatory system; Z83.3 Family history of diabetes mellitus
CPT/HCPCS: 10078; 10779; 10879; 27000

== ENCOUNTER 2018-09-15 02:14 | Inpatient (IN) | payer OTHER ==
[~2018-09-15] VITALS: Ht 121.9 cm; Wt 86.6 kg
[2018-09-15] VITALS (7 sets, daily range): BP systolic 105–188; BP diastolic 67–89
[~2018-09-15 02:14] MED LIST changes: +AMITIZA 24 MCG24 MC1 PO; +ASPIR 8181 M1 PO; +ATORVASTATIN CA40 MG PO; +BENTYL 20 MG TA20 M1 PO; +DIFLUCAN150 MG PO; +MIRALAX17 G1 PO; +NITROSTAT0.4 M1 SUBLING; +NOVOLIN R100 UNIT/3 SUBQ; +REGLAN 10 MG TA10 MG PO; -SYNTHROID100 MC1 PO; +SYNTHROID50 MCG PO
[2018-09-15 02:42] LABS: BASOPHILS 0.4 % (0.0-2.0); EOSINOPHILS 2.4 % (0.0-3.0); HEMATOCRIT 38.7 % (37.0-47.0); HEMOGLOBIN 12.6 gm/dL (12.0-15.0); LYMPHOCYTES 27.6 % (24.0-44.0); MCH 30.3 pg (26.0-34.0); MCHC 32.7 g/dL (28.0-37.0); MCV 92.6 fL (80.0-100.0); MONOCYTES 10.8 % (1.0-8.0); PLATELET COUNT 251 thou/uL (150-400); POLYS 58.8 % (36.0-66.0); RBC 4.18 mil/uL (4.20-5.00); RDW 14.2 % (10.5-14.5); WBC 6.8 thou/uL (4.0-11.0)
[2018-09-15 02:44] LABS: ANION GAP 11 mmol/L (7-16); BUN 11 mg/dL (7-18); CALCIUM 9.5 mg/dL (8.5-10.1); CHLORIDE 99 mmol/L (98-107); CO2 26 mmol/L (21-32); GLUCOSE 130 mg/dL (74-106); POTASSIUM 3.8 mmol/L (3.5-5.1); SODIUM 136 mmol/L (136-145)
[2018-09-15 02:54] LABS: ALBUMIN 3.7 g/dL (3.4-5.0); LIPASE 75 U/L (73-393); SGOT 18 U/L (15-37); SGPT 17 U/L (30-65); TOTAL BILIRUBIN 0.5 mg/dL (<0.1-1.0); TOTAL PROTEIN 6.9 g/dL (6.4-8.2); TROPONIN-I <0.06 ng/mL (<0.06)
--- NOTE | 2018-09-15 08:29 | EKG ---
[address] [place] [address] ELECTROCARDIOGRAM REPORT Name: LEANDER SOLARES Room #: 458-P ADM IN M.R.#: [id number] Admission: 09/15/18 Attend Phys: Zach Tsang MD Discharge: Date of : 51 Report #: [id number] THIS REPORT FOR: //name// [facility] ED Test Date: 2018-09-15 Test Time: 02:23:02 Pat Name: LEANDER SOLARES Department: Room: 458 Gender: F Arts Education Teacher: ILDEFONSO : 1955 Requested By: Dale Bowen Order Number: [id number] MD: Usama Townsend Measurements Intervals [place] Rate: 67 P: 65 [place]: 176 QRS: 13 QRSD: 94 T: 37 QT: 406 QTc: 429 Interpretive Statements Sinus rhythm Borderline T abnormalities, anterior leads Compared to ECG 09/01/2018 11:29:24 No significant change was found Electronically Signed On 09-15-2018 8:29:34 MACHINE ENGINEER by Usama Townsend [email or web address] <ELECTRONICALLY SIGNED> By: Usama Townsend MD, [facility] 09/15/1829 2 2 Usama Townsend MD, [facility] /EPI
[2018-09-15] MEDS ORDERED: NEURONTIN 300M300 M2 PO (09:01)
--- NOTE | 2018-09-15 09:37 | NUR ---
CHART REVIEW, CM CONSULT FOR DCP. PT UP IN BEDSIDE, LIGHTS OFF, VERBALLY RESPOND TO KNOCK ON DOOR AND CALLING OF HER NAME. PT IS A & O X 3, AND ABLE TO MAKE HER NEEDS KNOW, CONT ON ISOLATION PEND C-DIFF RESULTS. INTRO TO CM AND DCP, HOME HEALTH, AND REHAB. LEANDER REPORTED " LIVE IN SENIOR APARTMENT [facility], STAY IN WITH BOYFRIEND IN DIFFERENT APARTMENT AT [place] BECAUSE BY APARTMENT FLOODED. USE WALKER WITH SEAT, STILL DRIVE, USE PILL BOX FOR MEDICATIONS, HAVE TOILET RISER, SHOWER CHAIR AND GRAB BARS. HAVE [facility] AND I NEED TO LET NURSE KNOW I AM HERE, WILL WANT THEM AGAIN WHEN DISCHARGED. THANKS FOR CHECK ON ME"/LEANDER. NO CONCERNS VOICED DURING VISIT. WILL CONT FOLLOWING NEEDED FOR DC NEEDS. REFERRAL SENT TO [facility] PER PT REQUEST. DCP HOME WITH [facility]
--- NOTE | 2018-09-15 19:29 | NUR ---
CONT TO PROGRESS TOWARDS DISCHARGE GOALS. SHE DOES NOT SEEM TO BE IN PAIN AT THIS TIME. REPIRATIONS NON LABORED. SHE HAS NOT HAD A BOWEL MOVEMENT YET. N/V SUBSIDED SHE ATE THIS PM AND TOLERATED WELL. WILL CONT WITH PLAN OF CARE.
--- NOTE | 2018-09-15 22:22 | NUR ---
removed telemetry belt for m2 capsule at 2130 as prescribed. pt denies pain. reeducated regarding need for using the hat when needing to have a bm and that a sample will be sent when collected.
[2018-09-16 00:17] VITALS: BP 116/60
[2018-09-16 03:19] VITALS: BP 405/69
--- NOTE | 2018-09-16 03:58 | NUR ---
COMPLAINED OF CHEST WALL PAIN TONIGHT X1. SHE HAS BEEN CLEARED WITH CARDIOLOGY FOR CARDIAC COMPONENT OF CHEST PAIN. SHE RECEIVED THE FENTANYL WITH EFFECTIVE CONTROL OF PAIN TO HER LEFT AXILLA AREA. THE PAIN COULD BE RECREATED THROUGH TOUCH. SHE IS RESTING QUIETLY TONIGHT. PROGRESSING TOWARD DISCHARGE GOALS. NO BM TONIGHT AND STILL NEEDS A CDIFF SPECIMEN COLLECTED. COOPERATIVE AND FRIENDLY.
[2018-09-16 07:55] VITALS: BP 105/51
--- NOTE | 2018-09-16 08:28 | HC ---
[facility] [place] [address] CONSULTATION Name: LEANDER SOLARES Room #: 458-P ADM IN M.R.#: [id number] Admission: 09/15/18 Attend Phys: Zach Tsang MD Discharge: Date of : 51 Report #: [id number] THIS REPORT FOR: //name// CC: Zach Augustine HISTORY OF PRESENT ILLNESS: The patient is a nice woman with a complicated history including prior coronary artery disease including stenting of the LAD and right coronary arteries. She underwent stenting of the circumflex in 03/2018. Her history includes hypertension, dyslipidemia, chronic diastolic heart failure and chronic chest wall pain. She also has gastroparesis, gastric edema and bile reflux. She now presents with nausea and profuse diarrhea. She reports of black stools yesterday. She denies abdominal pain. She has a chronic left-sided chest wall pain. She took a nitroglycerin when this became worse without relief. The pain has a positional component, and there is reproduction on palpation of the left lateral chest wall. Cardiac enzymes have been normal. EKG demonstrates no acute ST or T-wave changes. She has been compliant with her dual antiplatelet therapy. The patient denies orthopnea, paroxysmal nocturnal dyspnea or lower extremity edema. No history of near syncope or syncope. ALLERGIES: SHE IS ALLERGIC TO SULFA, PENICILLIN, BACTRIM, LEVAQUIN, ERYTHROMYCIN, POSSIBLY REGLAN. MEDICATIONS: Include carvedilol 12.5 mg twice daily, ranitidine, Ranexa 1000 mg twice daily, metformin 1000 mg twice daily, Plavix 75 mg daily, aspirin 81 mg daily, insulin, atorvastatin 40 mg daily, Effexor XR 150 mg daily. PAST MEDICAL HISTORY: Medical records have been reviewed and include a history of coronary artery disease with prior stenting, dyslipidemia, hysterectomy, cholecystectomy, appendectomy, prior stroke in 2017, treated with thrombolytic therapy. SOCIAL HISTORY: Former smoker, . FAMILY HISTORY: Notable for premature coronary artery disease. REVIEW OF SYSTEMS: All systems negative except as that noted above. PHYSICAL EXAMINATION: GENERAL: Reveals a pleasant woman in no distress. VITAL SIGNS: Blood pressure is 170/80, heart rate is 66 and regular. She is afebrile. HEENT: There are neither xanthelasma, subcutaneous xanthomata, oral mucosal or digital cyanosis or kyphoscoliosis present. CHEST: Clear to auscultation and percussion. Reproduction of the chest pain on palpation of the third left lateral rib. She denies specific injury. [facility] [address] [place] [address] CONSULTATION Name: LEANDER SOLARES Room #: 458-P [facility] IN [facility].#: [id number] Admission: 09/15/18 Attend Phys: Zach Tsang MD Discharge: Date of : 51 Report #: [id number] ABDOMEN: Soft, obese and nontender. EXTREMITIES: Without cyanosis, clubbing or edema. Radial pulses are 2+. NEUROLOGIC: She is alert with a nonfocal exam. LABORATORY DATA: Sodium is 136, potassium 3.8, creatinine 1.0. Troponin of 0. White count 6.8, hemoglobin 12, hematocrit 38, platelet count 251. Abdominal films suggest possible ileus. Chest x-ray is normal. EKG, sinus rhythm with nonspecific T-wave abnormality. IMPRESSION: 1. Nausea, diarrhea, possible melena. 2. Chest pain, consistent with musculoskeletal/chest wall pain. 3. Chronic diastolic heart failure, compensated. 4. Coronary artery disease, stable with recent stenting. 5. Hypertension. 6. Dyslipidemia. RECOMMENDATIONS: 1. Continue dual antiplatelet therapy. 2. Continued aggressive risk factor modification. 3. No additional cardiovascular testing is needed at this point. I believe that her chest pain is consistent with her longstanding chronic chest wall pain. I would recommend not using nitroglycerin for this discomfort. 4. Consider GI evaluation. Thank you for asking me to participate in her care. <ELECTRONICALLY SIGNED> By: Usama Townsend MD, [facility] 09/16/18 0828 0820 1225 Usama Townsend MD, FACC /nt
[2018-09-16 08:55] LABS: ANION GAP 7 mmol/L (7-16); BUN 12 mg/dL (7-18); CALCIUM 9.1 mg/dL (8.5-10.1); CHLORIDE 100 mmol/L (98-107); CO2 28 mmol/L (21-32); CREATININE 1.2 mg/dL (0.6-1.0); GLUCOSE 122 mg/dL (74-106); SODIUM 135 mmol/L (136-145)
[2018-09-16 09:04] LABS: TROPONIN-I <0.06 ng/mL (<0.06)
--- NOTE | 2018-09-16 12:20 | NUR ---
TOWARDS POC PT A/O X4. VSS, AFEBRILE. PAIN ON ABD NOTED. MANAGED BY MEDS. NO CHEST PAIN NOTED. PRN NAUSEA MEDS GIVEN. PT REMAINED ON ISOLATION. STILL NO BM NOTED TODAY. WILL CONTINUE TO MONITOR.
[2018-09-16 12:59] LABS: HEMATOCRIT 38.7 % (37.0-47.0); HEMOGLOBIN 13.2 gm/dL (12.0-15.0); MCH 31.6 pg (26.0-34.0); MCHC 34.1 g/dL (28.0-37.0); MCV 92.9 fL (80.0-100.0); RBC 4.16 mil/uL (4.20-5.00); WBC 7.2 thou/uL (4.0-11.0)
[2018-09-16 15:54] VITALS: BP 109/62
[2018-09-16 19:51] VITALS: BP 93/57
[2018-09-16 22:28] VITALS: BP 100/57
[2018-09-17 05:57] VITALS: BP 107/54
[2018-09-17 09:07] VITALS: BP 117/73
[2018-09-17 11:07] LABS: % SATURATION 22 % (20-39); IRON 43 ug/dL (50-170); TIBC 198 ug/dL (250-450)
[2018-09-17] MEDS ORDERED: ACETAMINOPHEN325 M1 PO (11:35)
[2018-09-17] MEDS ORDERED: REGLAN 5 MG TAB5 MG PO (11:35)
[2018-09-17] MEDS ORDERED: NEURONTIN 300300 M1 PO (11:35)
[2018-09-17 12:06] VITALS: BP 117/73
[2018-09-17 13:26] VITALS: BP 117/73
--- NOTE | 2018-09-17 14:13 | NUR ---
CARE TEAM INDICATED PT IS MEDICALLY STABLE TO DISCHARGE HOME TODAY. PT IS TO RESUME PT AND OT HH SERVICES WITH [facility]. PT HAS A RECOMMENDED DME. NO OTHER CM INTERVENTION INDICATED AT THIS TIME. CASE CLOSED.
== END 2018-09-17 14:45 | disposition home health service (06) | DRG 378 ==
LOC: ER 02:14 → EROBS 03:29 → 4W 03:29
PROVIDERS: Emergency Medicine; Internal Medicine Gastroenterology; Nurse Practitioner; Nurse Practitioner Family; ADMIT Internal Medicine
PROC: 0DJD7ZZ Inspection of Lower Intestinal Tract, Via Natural or Artificial Opening (ICD-10-PCS; principal; 2018-09-16)
DX: K92.1 Melena (principal); I50.32 Chronic diastolic (congestive) heart failure; K56.7 Ileus, unspecified; R07.89 Other chest pain; I25.10 Atherosclerotic heart disease of native coronary artery without angina pectoris; E78.5 Hyperlipidemia, unspecified; E11.43 Type 2 diabetes mellitus with diabetic autonomic (poly)neuropathy; K31.84 Gastroparesis; E78.00 Pure hypercholesterolemia, unspecified; K31.89 Other diseases of stomach and duodenum; I11.0 Hypertensive heart disease with heart failure; G43.909 Migraine, unspecified, not intractable, without status migrainosus; K21.9 Gastro-esophageal reflux disease without esophagitis; E03.9 Hypothyroidism, unspecified; Z88.0 Allergy status to penicillin; Z88.2 Allergy status to sulfonamides; Z88.8 Allergy status to other drugs, medicaments and biological substances; Z88.1 Allergy status to other antibiotic agents; Z91.040 Latex allergy status; Z90.710 Acquired absence of both cervix and uterus; Z79.899 Other long term (current) drug therapy; Z86.14 Personal history of Methicillin resistant Staphylococcus aureus infection; Z90.49 Acquired absence of other specified parts of digestive tract; Z90.89 Acquired absence of other organs; Z82.49 Family history of ischemic heart disease and other diseases of the circulatory system; Z83.3 Family history of diabetes mellitus; Z95.5 Presence of coronary angioplasty implant and graft; Z86.73 Personal history of transient ischemic attack (TIA), and cerebral infarction without residual deficits; Z87.891 Personal history of nicotine dependence; Z79.82 Long term (current) use of aspirin
CPT/HCPCS: 10045

== ENCOUNTER 2018-10-31 23:23 | Inpatient (IN) | payer OTHER ==
[~2018-10-31] VITALS: Ht 149.9 cm; Wt 78.9 kg
[~2018-10-31 23:23] MED LIST changes: +NEURONTIN 300M300 M2 PO; +REGLAN 5 MG TAB5 MG PO
[2018-11-01] VITALS (7 sets, daily range): BP systolic 126–163; BP diastolic 54–74
[2018-11-01 00:26] LABS: HEMATOCRIT 38.3 % (37.0-47.0); HEMOGLOBIN 13.3 gm/dL (12.0-15.0); MCHC 34.7 g/dL (28.0-37.0); MCV 89.3 fL (80.0-100.0); PLATELET COUNT 218 thou/uL (150-400); RBC 4.29 mil/uL (4.20-5.00); RDW 14.9 % (10.5-14.5)
[2018-11-01 00:32] LABS: ANION GAP 12 mmol/L (7-16); BUN 13 mg/dL (7-18); CHLORIDE 94 mmol/L (98-107); CO2 29 mmol/L (21-32); CREATININE 0.9 mg/dL (0.6-1.0); GLUCOSE 140 mg/dL (74-106); SODIUM 135 mmol/L (136-145)
[2018-11-01 00:33] LABS: AMP/METHAMP Negative (Negative); BARBITURATES Negative (Negative); BENZODIAZEPINES Negative (Negative); COCAINE Negative (Negative); METHADONE Negative (Negative); OPIATES Negative (Negative); PCP Negative (Negative)
[2018-11-01 00:38] LABS: POTASSIUM 2.3 mmol/L (3.5-5.1)
[2018-11-01] MEDS ORDERED: REGLAN 10 MG TA10 MG PO (00:38)
[2018-11-01 00:40] LABS: ALBUMIN 3.5 g/dL (3.4-5.0); MAGNESIUM 1.2 mg/dL (1.8-2.4); SGOT 12 U/L (15-37); SGPT 15 U/L (30-65); TOTAL BILIRUBIN 0.5 mg/dL (<0.1-1.0); TOTAL PROTEIN 6.4 g/dL (6.4-8.2); TROPONIN-I <0.06 ng/mL (<0.06)
[2018-11-01 00:41] LABS: PROTIME 10.9 Seconds (9.3-11.4)
[2018-11-01 00:53] LABS: ABSOLUTE NEUTROPHILS 4.1 thou/uL (1.4-8.2)
--- NOTE | 2018-11-01 08:08 | NUR ---
PT C/O CHEST PRESSURE/PAIN AND NAUSEA, RELIEVED BY MORPHINE AND ZOFRAN. PT HAD X1 EPISODE OF VOMITING GREEN BILE, 50CC. PT REPORTS THAT SHE HAS BEEN VOMITING FOR A MONTH, STATES THAT SHE WAS SUPPOSED TO SEE GI SPECIALIST THIS COMING SATURDAY. REPORT GIVEN TO DEREK LOPEZ.
[2018-11-01 08:54] LABS: CALCIUM 9.1 mg/dL (8.5-10.1); CREATININE 0.9 mg/dL (0.6-1.0); MAGNESIUM 1.8 mg/dL (1.8-2.4)
[2018-11-01 08:57] LABS: POTASSIUM 2.7 mmol/L (3.5-5.1)
[2018-11-01 09:07] LABS: HEMATOCRIT 40.5 % (37.0-47.0); HEMOGLOBIN 13.6 gm/dL (12.0-15.0); MCH 30.5 pg (26.0-34.0); MCHC 33.7 g/dL (28.0-37.0); MCV 90.5 fL (80.0-100.0); RBC 4.48 mil/uL (4.20-5.00); RDW 14.9 % (10.5-14.5); WBC 8.4 thou/uL (4.0-11.0)
--- NOTE | 2018-11-01 12:48 | EKG ---
[place] [address] [facility] [place] [address] ELECTROCARDIOGRAM REPORT Name: LEANDER SOLARES Room #: 211-P ADM IN M.R.#: [id number] ������������������ Admission: 11/01/18 ������������������ Attend Phys: Zach Tsang MD Discharge: ������������������ Date of : 51 Report #: [id number] ����������������������������������������������������������������� [id number] THIS REPORT FOR: //name// [facility] ED Test Date: 2018-10-31 Test Time: 23:33:40 Pat Name: LEANDER SOLARES Department: Room: 211 Gender: F Crop Farmers: SHLOMO : 1955 Requested By: Rai Holbrook Order Number: [id number] MD: Usama Townsend Measurements Intervals [place] Rate: 67 P: 66 ND: 159 QRS: -38 QRSD: 85 T: -65 QT: 450 QTc: 475 Interpretive Statements Sinus rhythm Inferior infarct, age indeterminate Poor R wave progression Nonspecific T wave abnormality Compared to ECG 09/15/2018 02:23:02 No significant change was found Electronically Signed On 11-01-2018 12:48:15 EXTENSION CLERK by Usama Townsend [email or web address] ��������������������������������������������� <ELECTRONICALLY SIGNED> ���������������������������������������� By: Usama Townsend MD, [facility] ��������������������������������������������� 11/01/18 1248 2333 2333 Usama Townsend MD, [facility] /EPI
[2018-11-01 20:14] LABS: POTASSIUM 3.8 mmol/L (3.5-5.1)
[2018-11-02 03:46] VITALS: BP 112/60
--- NOTE | 2018-11-02 03:54 | NUR ---
ASSESSMENT DOCUMENTED.PT BEEN RESTING IN NO ACUTE DISTRESS.VSS.NON CARDIAC PAIN REPORTED ALONG WITH CHRONIC HEAD PAIN THAT WAS CONTROLLED WITH PAIN MED.SR/SB ON MONITOR.HAD LAXATIVE W/O BOWELS MOVEMENTS YET BUT PT PASSING GAS.BS POSITIVE [id number].NO OTHER CONCERNS VOICED AT THIS TIME.WILL CONT TO MONITOR PER POC.
[2018-11-02 05:37] LABS: HEMATOCRIT 37.9 % (37.0-47.0); HEMOGLOBIN 12.4 gm/dL (12.0-15.0); MCH 29.8 pg (26.0-34.0); MCHC 32.8 g/dL (28.0-37.0); MCV 90.9 fL (80.0-100.0); RBC 4.16 mil/uL (4.20-5.00); RDW 15.2 % (10.5-14.5); WBC 4.8 thou/uL (4.0-11.0)
[2018-11-02 05:50] LABS: CALCIUM 8.8 mg/dL (8.5-10.1); CREATININE 0.8 mg/dL (0.6-1.0); MAGNESIUM 1.7 mg/dL (1.8-2.4); POTASSIUM 4.6 mmol/L (3.5-5.1)
[2018-11-02 08:45] VITALS: BP 126/66
--- NOTE | 2018-11-02 11:05 | EKG ---
[address] [place] [address] ELECTROCARDIOGRAM REPORT Name: LEANDER SOLARES Room #: 211-P ADM IN M.R.#: [id number] ������������������ Admission: 11/01/18 ������������������ Attend Phys: Zach Tsang MD Discharge: ������������������ Date of : 51 Report #: [id number] ����������������������������������������������������������������� [id number] THIS REPORT FOR: //name// Test Date: 2018-11-02 Test Time: 07:07:08 Pat Name: LEANDER SOLARES Department: Room: 211 P Gender: F Shaker Tender: GLORIA : 1955 Requested By: Usama Townsend Order Number: [id number] MD: Usama Townsend Measurements Intervals [place] Rate: 59 P: 73 UT: 162 QRS: 8 QRSD: 84 T: 37 QT: 425 QTc: 421 Interpretive Statements Sinus rhythm Poor R wave progression Nonspecific T wave abnormality Compared to ECG 10/31/2018 23:33:40 T wave abnormality is less pronounced Electronically Signed On 11-02-2018 11:05:26 HOCKEY PLAYER by Usama Townsend [email or web address] ��������������������������������������������� <ELECTRONICALLY SIGNED> ���������������������������������������� By: Usama Townsend MD, [facility] ��������������������������������������������� 11/02/18 1105 6 6 Usama Townsend MD, [facility] /EPI
[2018-11-02 11:20] VITALS: BP 123/54
--- NOTE | 2018-11-02 11:37 | HC ---
[facility] [place] [address] CONSULTATION Name: LEANDER SOLARES Room #: 211-P ADM IN M.R.#: [id number] Admission: 11/01/18 ������������������ Attend Phys: Zach Tsang MD Discharge: ������������������ Date of : 53 Report #: [id number] THIS REPORT FOR: //name// CC: Zach Augustine DATE OF SERVICE: 11/01/2018 REASON FOR CONSULTATION: Chest pain. HISTORY OF PRESENT ILLNESS: The patient is a 63-year-old woman with a history of coronary artery disease with prior stenting of the LAD and right coronaries. She underwent stenting of the circumflex in 03/2018. Post-stenting, she continued to have pain, which has been attributed to either GI discomfort or musculoskeletal pain. She has had several hospitalizations following her stenting procedure primarily for GI related symptoms. She now presents with 1 month of nausea and vomiting. She reports that she has been throwing up "bile." This has been worse over the past couple of days. Yesterday afternoon, she had recurrent nausea and vomiting. This was associated with a burning feeling in the mid portion of her chest. She became mildly diaphoretic. She took several nitroglycerins with only mild improvement in the pain. Paramedics were summoned. She was brought to the Emergency Department where she continued to have nausea and vomiting. Cardiac enzymes have been normal. Her potassium is low and is being supplemented. She reports that this is dissimilar to her pre-stent discomfort. MEDICATIONS: Include Ranexa 1000 mg twice daily, carvedilol 12.5 mg twice daily, topiramate 100 mg twice daily, Protonix 40 mg daily, gabapentin 600 mg in the morning and 1200 mg at bedtime, levothyroxine 50 mcg daily, torsemide 20 mg 2-3 times a day, aspirin 81 mg daily, metformin 1000 mg twice daily, Zantac 150 mg twice daily, Plavix 75 mg daily, atorvastatin 40 mg daily and vitamins. PAST MEDICAL HISTORY: Medical records have been reviewed and include history of herniorrhaphy, cholecystectomy, appendectomy, coronary artery disease, chronic chest pain syndrome, stroke in 2017. ALLERGIES: SHE IS ALLERGIC TO SULFA, ADHESIVES, ERYTHROMYCIN, PENICILLIN, BACTRIM, LEVAQUIN. SHE HAS AN INTOLERANCE TO REGLAN. SOCIAL HISTORY: Former smoker, . FAMILY HISTORY: Notable for premature coronary artery disease. REVIEW OF SYSTEMS: All systems negative except as that noted above. PHYSICAL EXAMINATION: [address] [address] CONSULTATION Name: LEANDER SOLARES Room #: 211-P [facility] IN .R.#: [id number] Admission: 11/01/18 ������������������ Attend Phys: Zach Tsang MD Discharge: ������������������ Date of : 51 Report #: [id number] GENERAL: Reveals a pleasant woman who is alert. She has ongoing nausea. VITAL SIGNS: Blood pressure is 150/71, heart rate is 67, irregular. She is afebrile. HEENT: There are neither xanthelasma, subcutaneous xanthomata, oral mucosal or digital cyanosis or kyphoscoliosis present. CHEST: Clear to auscultation and percussion. CARDIOVASCULAR: Regular rate and rhythm with normal S1, S2. No murmurs or rubs. ABDOMEN: Soft and nontender. EXTREMITIES: Without cyanosis, clubbing or edema. Radial pulses are 2+. NEUROLOGIC: She is alert with a nonfocal exam. LABORATORY DATA: EKG, sinus rhythm with poor R-wave progression, nonspecific T-wave abnormality. Sodium 135, potassium 2.3, creatinine 0.9. Troponin 0. White count 7.0, hemoglobin 13, hematocrit 38, platelet count 218. IMPRESSION: 1. Chest pain, probably gastrointestinal in origin related to nausea and vomiting. 2. History of gastroparesis. 3. Coronary artery disease with fairly recent stenting, clinically stable. 4. Diabetes. 5. Dyslipidemia. 6. Chronic diastolic heart failure, compensated. RECOMMENDATIONS: 1. Resume usual cardiovascular medicines. 2. GI evaluation. 3. I do not believe her current chest discomfort is angina or is an ischemic symptom, but rather related to recent nausea and vomiting. I have discussed these issues with the patient. Thank you for asking me to participate in her care. ��������������������������������������������� <ELECTRONICALLY SIGNED> ���������������������������������������� By: Usama Townsend MD, FACC ��������������������������������������������� 11/02/18 1137 0813 2116 Usama Townsend MD, FACC /nt
--- NOTE | 2018-11-02 11:48 | HC ---
[facility] [place] [address] CONSULTATION Name: LEANDER SOLARES Room #: 211-P ADM IN M.R.#: [id number] Admission: 11/01/18 ������������������ Attend Phys: Zach Tsang MD Discharge: ������������������ Date of : 53 Report #: [id number] THIS REPORT FOR: //name// CC: USAMA Augustine REASON FOR CONSULTATION: The patient is a 63-year-old woman who is known to our service, admitted through the Emergency Room yesterday with chest pain as well as nausea and vomiting. HISTORY OF PRESENT ILLNESS: The patient is known to our service as she has been admitted to this facility several times in the past few months. In summary, she has a longstanding history of GI problems and GI complaints. Many years ago, she was found to have pancreatitis. She does not recall specifically, but to the best of her recollection, is thought to be medication-induced, but she does not know specifically what medication. It is noted that she has had a cholecystectomy. On this admission, I do not see that pancreatic enzymes were obtained. It is noted that in 2010 she had an MRCP, which was negative. CT scan in August revealed normal liver, bile duct dilation was not described. She has not had recent problems with pancreatitis. In recent months, she had undergone evaluation including an upper endoscopy. She did have a drop in hemoglobin and black stools. 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 However, the biopsies were not done at that time because she had been on Plavix. She has not had any further black or melanotic stools and hemoglobin is normal at this point in time. She does have a longstanding history of diabetes. She has been on oral agents. She did have a gastric emptying study done in August this past year. It was borderline abnormal with 28% retention at 3 hours, which is upper normal range and 12% retention at 4 hours with 10% being the upper normal range. She notes she is allergic to ERYTHROMYCIN, cannot tolerate that medicine. She was given metoclopramide and she felt that it made her symptoms worse, so she stopped taking that particular medicine. She also has had chronic pain including headaches, back pain and pain in her feet. She has used hydrocodone in the past, but tells me she has not used any hydrocodone since her last admission. She denies use of narcotics since she was last discharged from the hospital. She reports in the past several weeks, she has continued to have problems with nausea. She says she cannot eat. She has had multiple episodes of bilious emesis and using no more than half a cup. On a couple of occasions, she did bring up some food, but has not brought up any blood. She has not had any melanotic stools. She does take nabumetone. She also does take an aspirin [address] [address] CONSULTATION Name: LEANDER SOLARES Room #: 211-P ADM IN M.R.#: [id number] Admission: 11/01/18 ������������������ Attend Phys: Zach Tsang MD Discharge: ������������������ Date of : 53 Report #: [id number] daily. She takes pantoprazole 40 mg daily and ranitidine 300 mg at bedtime. She reports in recent months due to her GI complaints and inability to eat, she has lost 30 pounds. Interestingly, she reports that she no longer needs to take her metformin on a daily basis, which had been associated with weight loss. History is also significant for chronic constipation. She reports it is not uncommon for her to go nearly a week without defecation. She does use MiraLax, but does not use it on a daily basis and only uses it when she gets very bound up. Interestingly, she reports that even when she cleans out, she still has nausea and bilious emesis. She does take 4 generic stool softeners per day. She was admitted through the Emergency Room last night. She has been seen by Dr. Usama Townsend. It is his opinion that her symptoms are GI related. He reports that her pain is noncardiac. She does have compensated diastolic heart failure. She has known coronary disease with previous placement of 5 stents. He has recommended GI evaluation. PAST MEDICAL HISTORY: Notable for longstanding type 2 diabetes. She has high blood pressure. She has had migraine headaches, elevated lipids. Also, hypothyroidism. Remote history of pancreatitis. She has had problems with vertigo. She has had cellulitis in the past, I and D of an inner thigh abscess. She has had MRSA in the past. She has had a mini stroke or TIA. PAST SURGICAL HISTORY: She has had an appendectomy, cholecystectomy, hysterectomy. She had a small bowel intussusception, which required surgery. She has had a hiatus hernia repair, vein stripping, Achilles repair, I and D of right thigh MRSA abscess. ALLERGIES: BACTRIM, CEPHALEXIN, PENICILLIN, DOXYCYCLINE, ERYTHROMYCIN, LEVOFLOXACIN, AND ADHESIVE TAPE. CURRENT MEDICATIONS: This is list provided to me by the patient which she is using at home. Divalproex DR 250 mg 2 daily, Ranexa 1000 mg 2 daily, carvedilol 12.5 mg daily, topiramate 100 mg 2 daily, nabumetone 500 mg 2 daily, pantoprazole 40 mg daily, gabapentin 600 mg 1 in the morning and 2 at bedtime, levothyroxine 50 mcg daily, torsemide 20 mg 2-3 daily, aspirin 81 mg daily, metformin 1000 mg 2 daily but she states she does not take it all the time, ranitidine 300 mg at bedtime, Plavix 75 mg daily, atorvastatin 40 mg daily, amitriptyline 20 mg at bedtime, vitamin D3, biotin, vitamin B12, fiber, multivitamin, stool softeners 4 daily. She has not used hydrocodone recently. She has promethazine at home that she takes intermittently for her nausea and vomiting. FAMILY HISTORY: No family history of colon cancer or ulcer disease. [facility] [address] [place] [address] CONSULTATION Name: LEANDER SOLARES Room #: 211-P [facility] IN M.R.#: [id number] Admission: 11/01/18 ������������������ Attend Phys: Zach Tsang MD Discharge: ������������������ Date of : 51 Report #: [id number] SOCIAL HISTORY: She quit smoking 35 years ago. She does not consume alcohol. She reports she has 8 grandchildren. REVIEW OF SYSTEMS: GENERAL: She has not had any fever. She has reported some chills. She reports 30-pound weight loss in recent months due to her GI complaints, in particular nausea and vomiting. CENTRAL NERVOUS SYSTEM: Previous TI. No focal weakness, numbness, or loss of conscious, seizures or strokes. ENT: No change in vision or sores in the mouth. PULMONARY: Some shortness of breath, particularly yesterday with her chest pain. No pneumonia or tuberculosis. CARDIOVASCULAR: Known coronary stents and diastolic heart failure. GASTROINTESTINAL: Nausea and nonbloody emesis, constipation. No bloody stools or melanotic stools. GENITOURINARY: No dysuria or pyuria. GYNECOLOGIC: Previous hysterectomy. No breast problems. MUSCULOSKELETAL: Pain in the knees, feet and low back. SKIN: Easy bruising, on aspirin. PSYCHIATRIC: She denies treatment for depression, anxiety or bipolar illness. ENDOCRINE: She has diabetes and thyroid disease. HEMATOLOGIC: Denies any neoplasms. PHYSICAL EXAMINATION: GENERAL: The patient is a well-developed, well-nourished, somewhat anxious woman in no acute distress. She is resting comfortably in bed. VITAL SIGNS: Blood pressure 141/67, pulse is 62. HEENT: Anicteric. Pupils equal, round. Oropharynx clear. NECK: Supple, without thyromegaly. CHEST: Clear. HEART: Regular rate and rhythm, normal S1 and S2. ABDOMEN: Somewhat obese, but normal bowel sounds, soft, nontender, without hepatosplenomegaly or masses. RECTAL: Not done at this time. EXTREMITIES: Without cyanosis, clubbing, edema. She has ecchymotic areas on her upper extremities, probably from aspirin. NEUROLOGIC: Alert and oriented to person, place, and time. Moves all 4 extremities well. ASSESSMENT: 1. Nausea and vomiting, prolonged. 2. Chronic constipation. 3. Atypical chest pain. 4. History of pancreatitis, status post cholecystectomy. 5. Diabetes. 6. Coronary artery disease with stents. [address] [address] CONSULTATION Name: LEANDER SOLARES Room #: 211-P [facility] IN M.R.#: [id number] Admission: 11/01/18 ������������������ Attend Phys: Zach Tsang MD Discharge: ������������������ Date of : 51 Report #: [id number] 7. Diastolic heart failure. 8. Borderline gastroparesis. 9. Chronic headaches and chronic pain. COMMENT: Her gastric emptying study is marginally abnormal. She has not tolerated available medications for gastroparesis. At this point in time, we would treat simply for nausea. Polypharmacy certainly may be an issue in this patient, which may be contributing to her symptoms. She has not shown us any evidence of GI bleeding. The constipation needs to be better managed, which I think overall will help her. RECOMMENDATIONS: 1. Avoid narcotics as much as possible. 2. Agree with PPI. 3. Agree with H2 ranitidine. 4. Zofran as needed. 5. Transderm scopolamine patch. 6. We will check a serum lipase in view of her history of pancreatitis. 7. Follow up on KUB with regards to constipation, has been ordered today. 8. No plans for further intervention at this time. However, if symptoms do not resolve, would consider repeating upper endoscopy, although it was just done about 2 months ago. 9. Advance diet as tolerated. ��������������������������������������������� <ELECTRONICALLY SIGNED> ���������������������������������������� By: Satnam Lindsay MD ��������������������������������������������� 11/02/18 1148 1008 2129 Satnam Lindsay MD /nt
[2018-11-02 16:45] VITALS: BP 113/60
[2018-11-02 20:10] VITALS: BP 113/56
--- NOTE | 2018-11-03 02:40 | NUR ---
ASSESSMENTS CHARTED. PATIENT C/O HEADACHE AND NAUSEA AT START OF SHIFT. PT GETTING UP AD ELLEN AT START OF SHIFT TO [facility]. LATER, WEAKNESS BEGINS, PATIENT FEELS UNSURE OF HER LEGS. CHANGE HER ACTIVITY LEVEL TO UP WITH ASSIST TO [facility]. PLAN OF CARE TO CONTINUE CURRENT COURSE OF TREATMENT.
[2018-11-03 03:50] LABS: HEMATOCRIT 34.9 % (37.0-47.0); HEMOGLOBIN 11.7 gm/dL (12.0-15.0); MCH 30.6 pg (26.0-34.0); MCHC 33.5 g/dL (28.0-37.0); MCV 91.5 fL (80.0-100.0); RBC 3.81 mil/uL (4.20-5.00); RDW 15.2 % (10.5-14.5); WBC 4.2 thou/uL (4.0-11.0)
[2018-11-03 04:03] LABS: CALCIUM 8.8 mg/dL (8.5-10.1); CREATININE 0.8 mg/dL (0.6-1.0); MAGNESIUM 1.5 mg/dL (1.8-2.4); POTASSIUM 4.4 mmol/L (3.5-5.1)
[2018-11-03 04:45] VITALS: BP 97/56
[2018-11-03 08:00] VITALS: BP 134/69
[2018-11-03 12:00] VITALS: BP 121/60
[2018-11-03 16:00] VITALS: BP 126/64
--- NOTE | 2018-11-03 19:37 | NUR ---
ASSUMED PATIENT CARE THIS AM. PATIENT A&O, ROOM AIR. UP AD ELLEN IN ROOM. ISOLATION MAINTAINED. PAIN PARTIALLY MANAGED WITH ORAL MEDICATION. STEADY GAIT. LOW APPETITE DUE TO NAUSEA, DOCTORS AWARE, DIET MODIFIED BY SACK KEEPER. PLAN TO DISCHARGE HOME TOMORROW WITH GI FOLLOW UP.
[2018-11-03 21:10] VITALS: BP 113/60
[2018-11-04 04:40] LABS: HEMATOCRIT 33.1 % (37.0-47.0); HEMOGLOBIN 11.3 gm/dL (12.0-15.0); MCH 31.4 pg (26.0-34.0); MCHC 34.1 g/dL (28.0-37.0); RBC 3.6 mil/uL (4.20-5.00); RDW 15.5 % (10.5-14.5); WBC 4.3 thou/uL (4.0-11.0)
[2018-11-04 04:43] LABS: CALCIUM 8.4 mg/dL (8.5-10.1); CREATININE 0.8 mg/dL (0.6-1.0); MAGNESIUM 1.5 mg/dL (1.8-2.4); POTASSIUM 3.7 mmol/L (3.5-5.1)
[2018-11-04 05:12] VITALS: BP 117/60
[2018-11-04 08:00] VITALS: BP 131/62
--- NOTE | 2018-11-04 08:21 | NUR ---
ASSESSMENTS CHARTED. PATIENT STILL NAUSEOUS. PATIENT STILL HAVING HEADACHES. FEELING STRONGER TODAY. ABLE TO AMBULATE ON OWN TO BS. IN ISOLATION FOR MRSA NARES. PLAN OF CARE IS TO FOLLOW UP WITH GI GROUP HERE AT [facility]. TO REST STOMACH SO THEN HEAD CAN GET BETTER.
[2018-11-04 12:00] VITALS: BP 125/65
--- NOTE | 2018-11-04 12:04 | NUR ---
Met with patient and discussed dc planning. patient resides at home in independent apt with all needs on one level. She has a rolator walker for home. She reports she has rec HH from [facility] in past and agreeable [place] rec [place]. [facility] reports patient has refused in past but will accept for new referral. patient reports pain in abdomen updated Rn.
[2018-11-04] MEDS ORDERED: TRANSDERM-SCOP1 EACH TRANSDERM (15:37)
[2018-11-04 16:00] VITALS: BP 125/65
--- NOTE | 2018-11-04 16:02 | NUR ---
patient to [place] home with HH via [facility]. She reports she has used [facility] in past and agreeable to Home with HH services. Updated [facility] of [place].
[2018-11-04 16:06] VITALS: BP 125/65
== END 2018-11-04 16:00 | disposition home health service (06) | DRG 391 ==
LOC: ER 23:23 → EROBS 11-01 01:27 → 2N 11-01 01:27
PROVIDERS: Emergency Medicine; ADMIT Internal Medicine
DX: K21.9 Gastro-esophageal reflux disease without esophagitis (principal); E43 Unspecified severe protein-calorie malnutrition; I50.32 Chronic diastolic (congestive) heart failure; E11.43 Type 2 diabetes mellitus with diabetic autonomic (poly)neuropathy; I25.10 Atherosclerotic heart disease of native coronary artery without angina pectoris; E78.5 Hyperlipidemia, unspecified; E87.6 Hypokalemia; E83.42 Hypomagnesemia; K31.84 Gastroparesis; I11.0 Hypertensive heart disease with heart failure; K59.09 Other constipation; R51 Headache; E78.00 Pure hypercholesterolemia, unspecified; E03.9 Hypothyroidism, unspecified; Z95.5 Presence of coronary angioplasty implant and graft; Z90.49 Acquired absence of other specified parts of digestive tract; Z87.891 Personal history of nicotine dependence; Z86.73 Personal history of transient ischemic attack (TIA), and cerebral infarction without residual deficits; Z68.35 Body mass index [BMI] 35.0-35.9, adult; Z86.14 Personal history of Methicillin resistant Staphylococcus aureus infection; Z79.82 Long term (current) use of aspirin; Z79.84 Long term (current) use of oral hypoglycemic drugs; Z79.899 Other long term (current) drug therapy; Z88.1 Allergy status to other antibiotic agents; Z88.0 Allergy status to penicillin; Z88.2 Allergy status to sulfonamides; Z88.8 Allergy status to other drugs, medicaments and biological substances; Z82.49 Family history of ischemic heart disease and other diseases of the circulatory system; Z83.3 Family history of diabetes mellitus
CPT/HCPCS: 10081